=== PATIENT | female | born 1950 | race African-American/Black ===

== ENCOUNTER 2016-08-29 07:46 | Day surgery (SDC) | payer MEDICARE, MEDICAID ==
[2016-08-29 08:18] LABS: HEMOGLOBIN 12.2 g/dL (12.0-15.5); HGB HCT DIFFERENCE -1.4; MEAN CORPUSCULAR HEMOGLOBIN 26.4 pg (27.0-33.4); MEAN CORPUSCULAR HGB CONC 32.1 g/dL (32.0-36.0); MEAN CORPUSCULAR VOLUME 82 fl (80-97); RED BLOOD COUNT 4.62 10^6/uL (3.72-5.28); RED CELL DISTRIBUTION WIDTH 14.2 % (11.5-14.0); WHITE BLOOD COUNT 3.1 10^3/uL (4.0-10.5)
[2016-08-29 08:25] LABS: PROTHROMBIN TIME 12.8 SEC (11.4-15.4)
[2016-08-29 08:26] LABS: PARTIAL THROMBOPLASTIN TIME 30.6 SEC (23.5-35.8)
[2016-08-29 08:36] LABS: BLOOD UREA NITROGEN 14 mg/dL (7-20); CREATININE RESULT 0.64 mg/dL (0.52-1.25)
[2016-08-29] MEDS ORDERED: LIDOCAINE 1% INJ-PF (10 MG/ML) 30 ML SDV ONE (09:18)
[2016-08-29] MEDS ORDERED: ONDANSETRON HCL INJ/PF 4 MG/2 ML SDV ONE (10:16)
[2016-08-29] MEDS ORDERED: ONDANSETRON HCL INJ/PF 4 MG/2 ML SDV IV ONE (10:30)
[2016-08-29 12:17] VITALS: BP 138/89
== END 2016-08-29 12:30 | disposition home or self-care (01) ==
LOC: RAD 07:46
PROVIDERS: ATTEND Specialist
PROC: B01BYZZ Fluoroscopy of Spinal Cord using Other Contrast (ICD-10-PCS; principal; 2016-08-29)
DX: M51.36 Other intervertebral disc degeneration, lumbar region (principal); M54.16 Radiculopathy, lumbar region; E11.9 Type 2 diabetes mellitus without complications; Z79.01 Long term (current) use of anticoagulants
CPT/HCPCS: 36415; 84520; 82565; 85027; 85610; 85730; 72265; 72132; J3490; J2405

== ENCOUNTER 2016-11-10 23:33 | Emergency (ER) | payer MEDICARE, MEDICAID ==
--- NOTE | 2016-11-11 01:57 | ER Document Report ---
ED General - General Chief Complaint: Chest Pain Stated Complaint: CHEST PAIN, SHOULDER PAIN Notes: Patient is a 58-year-old female presents with complaint of pain in her right shoulder rates on the right arm and into her chest. Patient says it's worse with certain movements. She says if she leans over to lease picker something causes pain that shoots into her arm. Also she goes away back onto that right side also causes the same pain. No difficulty breathing. No fevers. No history of heart attack. No recent infections. No vomiting. No other complaints at this time. TRAVEL OUTSIDE OF THE [place] IN LAST 30 DAYS: No - Related Data Allergies/Adverse Reactions: No Known Allergies Allergy (Verified 04/07/15 08:27) Home Medications: Current Home Medications Dexlansoprazole [Dexilant 60 mg Capsule] 60 mg PO DAILY 11/11/16 [History] Hydrocodone Bit/Acetaminophen [Hydrocodon-Acetaminophn 10-325] 1 tab PO Q6HP PRN 11/11/16 [History] Icosapent Ethyl [Vascepa] 2 gm PO BID 11/11/16 [History] Insulin Degludec [Tresiba Flextouch U-100] 0 units SUBCUT ASDIR PRN 11/11/16 [ History] Metoprolol Succinate [Metoprolol Succinate] 50 mg PO DAILY 11/11/16 [History] [place]-3 Fatty Acids [[place]-3] 1,000 mg PO DAILY 11/11/16 [History] Promethazine HCl [Promethazine HCl] 25 mg PO Q6HP PRN 11/11/16 [History] Past Medical History - Social History Smoking Status: Never Smoker Chew tobacco use (# tins/day): Yes Frequency of alcohol use: None Drug Abuse: None Family History: Reviewed & Not Pertinent Patient has suicidal ideation: No Patient has homicidal ideation: No - Past Medical History Cardiac Medical History: Denies: Hx Coronary Artery Disease, Hx Heart Attack, Hx Hypertension Pulmonary Medical History: Denies: Hx Asthma, Hx Bronchitis, Hx COPD, Hx Pneumonia Neurological Medical History: Denies: Hx Cerebrovascular Accident, Hx Seizures Endocrine Medical History: Reports: Hx Diabetes Mellitus Type 1, Hx Diabetes Mellitus Type 2 Renal/ Medical History: Denies: Hx Peritoneal Dialysis GI Medical History: Reports: Hx Gastroesophageal Reflux Disease Musculoskeltal Medical History: Denies Hx Arthritis Past Surgical History: Reports: Hx Cholecystectomy, Hx Hysterectomy - Immunizations Immunizations up to date: No Hx Diphtheria, Pertussis, Tetanus Vaccination: Yes Review of Systems - Review of Systems Notes: My Normal Review Basic REVIEW OF SYSTEMS: CONSTITUTIONAL : Denies fever, chills, or sweats. Denies recent illness. EENT: Denies eye, ear, throat, or mouth pain or symptoms. Denies nasal or sinus congestion. CARDIOVASCULAR: Pain radiating from right shoulder into the chest. RESPIRATORY: Denies cough, cold, or chest congestion. Denies shortness of breath, difficulty breathing, or wheezing. GASTROINTESTINAL: Denies abdominal pain. Denies nausea, vomiting, or diarrhea. Denies constipation. Last BM: MUSCULOSKELETAL: Right shoulder pain SKIN: Denies rash or skin lesions. NEUROLOGICAL: Denies altered mental status or loss of consciousness. Denies headache. Denies weakness or paralysis or loss of use of either side. Denies problems with gait or speech. Denies sensory or motor loss. ALL OTHER SYSTEMS REVIEWED AND NEGATIVE. Physical Exam - Vital signs Vitals: Temp Pulse Resp BP Pulse Ox 97.5 F 51 L 18 145/80 H 99 11/10/16 23:37 11/10/16 23:37 11/10/16 23:37 11/10/16 23:37 11/10/16 23:37 - Notes Notes: General Appearance: Well nourished, alert, cooperative, no acute distress, mild obvious discomfort. Vitals: reviewed, See vital signs table. Head: no swelling or tenderness to the head Eyes: PERRL, EOMI, Conjuctiva clear Mouth: No decreasd moisture Neck: Supple, no neck tenderness, Lungs: No wheezing, No rales, No rhonci, No accessory muscle use, good air exchange bilaterally. Heart: Normal rate, Regular rythm, No murmur, no rub Abdomen: Normal BS, soft, No rigidity, No abdominal tenderness, No guarding, no rebound, no abdominal masses, no organomegaly Extremities: strength 5/5 in all extremities, good pulses in all extremities, whenever patient moves the arm of the right shoulder a certain way she will get pain that shoots up. When I have her lay back and also causes similar pain into her right shoulder and chest and arm. Patient's pain is also reproduced when she reaches out with her right arm. She has no swelling or redness to the shoulder. No warmth. No signs of infection. Remainder upper extremity exam is negative. Skin: warm, dry, appropriate color, no rash Neuro: speech clear, oriented x 3, normal affect, responds appropriately to questions. Course - Vital Signs Vital signs: Temp Pulse Resp BP Pulse Ox 97.5 F 51 L 18 145/80 H 99 11/10/16 23:37 11/10/16 23:37 11/10/16 23:37 11/10/16 23:37 11/10/16 23:37 - Laboratory Result Diagrams: 11/11/16 02:15 11/11/16 02:15 Laboratory results interpreted by me: 11/11/16 11/11/16 02:15 02:15 WBC 3.4 L MCH 26.4 L Monocytes % 14.1 H Glucose 163 H Total Protein 6.1 L - EKG Interpretation by Me Additional EKG results interpreted by me: 11/11/16 01:55 EKG is reviewed and interpreted by me. EKG shows normal sinus rhythm with rate of [address] segment elevation or depression. No ischemic T wave inversions. RI interval, QRS duration, QTc interval's are within normal range. Old EKG for comparison is from 11/11/2015. - Transfer of Care Notes: 11/11/16 04:22 Patient's pain is very musculoskeletal exam. It is easily reproducible with certain movements. It is localized to the shoulder and areas just around the shoulder. Her EKG and cardiac enzymes are negative. I think it's highly unlikely that this is cardiac in nature. I strongly encouraged her follow up with a primary care doctor on Sunday. I encourage her to return to ER if she gets any spreading of the pain, worsening of the pain, difficulty breathing, or she feels unwell. Patient agrees with plan and will be discharged home. Dictation of this chart was performed using voice recognition software; therefore, there may be some unintended grammatical errors. Discharge - Discharge Clinical Impression: Shoulder pain, acute Qualifiers: Laterality: right Qualified Code(s): M25.511 - Pain in right shoulder Condition: Good Disposition: HOME, SELF-CARE Additional Instructions: NORMAL EXAM AND WORKUP: At this time, your examination and workup show no significant abnormality. No significant abnormal physical findings were noted. All laboratory, EKG, and imaging (x-ray) studies that were ordered show no significant abnormality. Although your examination and all studies that were ordered showed no significant abnormal finding, there are no examinations and no studies that are 100% accurate. There is always the possibility that some abnormality could exist and not be detected with physical examination or within the limits and capabilities of laboratory and other studies. You should return or follow up as you were instructed on your visit today for further evaluation if your symptoms do not resolve. CHEST WALL PAIN: Your chest pain may be coming from the chest wall. This is often caused by straining the muscles or joints in the chest during physical activity, direct trauma, coughing, or vigorous vomiting. Persons with arthritis are especially prone to this type of pain, due to inflammation of the cartilage joints near the breast bone. Occasionally, no cause can be found. Rest from strenuous physical activity. This kind of chest pain is usually made worse by movement of the chest. Depending on the symptoms, we may prescribe medicine for pain, muscle relaxation, and antiinflammatory effects. If the pain is new, and seems to be due to muscle strain, cold packs can help. Otherwise, apply gentle warmth to the painful area for 15 minutes every hour or two. You should call contact the doctor immediately if things change. Further evaluation is needed if you develop a fever or cough, if the nature of the pain changes, or if you become short of breath. FOLLOW-UP CARE: If you have been referred to a physician for follow-up care, call the physician s office for an appointment as you were instructed or within the next two days. If you experience worsening or a significant change in your symptoms, notify the physician immediately or return to the Emergency Department at any time for re-evaluation. Please take the medication as prescribed. Please follow closely with her primary care doctor on Sunday for reevaluation. Please return to the ER if your pain worsens, the pain starts to occur on the left side of your chest, no difficulty breathing, fevers, or feel that anything is worsening. Prescriptions: Naproxen [Naprosyn 250 mg Tablet] 250 mg PO BID #20 tablet Referrals: ROMEO DIAZ MD [Primary Care Provider] - 11/13/16
[2016-11-11 02:32] LABS: ABSOLUTE EOSINOPHILS # (AUTO) 0.1 10^3/uL (0.0-0.6); ABSOLUTE LYMPHOCYTES (AUTO) 0.7 10^3/uL (0.5-4.7); ABSOLUTE MONOCYTES (AUTO) 0.5 10^3/uL (0.1-1.4); BASOPHILS % (AUTO) 0.6 % (0-2); EOSINOPHILS % (AUTO) 4.2 % (0-6); HEMATOCRIT 37.5 % (36.0-47.0); HEMOGLOBIN 12.2 g/dL (12.0-15.5); HGB HCT DIFFERENCE -0.9; MEAN CORPUSCULAR HEMOGLOBIN 26.4 pg (27.0-33.4); MEAN CORPUSCULAR HGB CONC 32.5 g/dL (32.0-36.0); MEAN CORPUSCULAR VOLUME 81 fl (80-97); MONOCYTES % (AUTO) 14.1 % (3-13); RED BLOOD COUNT 4.63 10^6/uL (3.72-5.28); SEGMENTED NEUTROPHILS % (AUTO) 60.1 % (42-78); WHITE BLOOD COUNT 3.4 10^3/uL (4.0-10.5)
[2016-11-11 02:49] LABS: ALANINE AMINOTRANSFERASE 25 U/L (9-52); ALBUMIN 3.7 g/dL (3.5-5.0); ALKALINE PHOSPHATASE 98 U/L (38-126); ANION GAP 12 (5-19); ASPARTATE AMINO TRANSFERASE 28 U/L (14-36); BILIRUBIN,DIRECT 0.2 mg/dL (0.0-0.4); BILIRUBIN,TOTAL 0.3 mg/dL (0.2-1.3); BLOOD UREA NITROGEN 15 mg/dL (7-20); CALCIUM 9.4 mg/dL (8.4-10.2); CARBON DIOXIDE 28 mmol/L (22-30); CHLORIDE 100 mmol/L (98-107); CREATINE KINASE 109 U/L (30-135); CREATININE RESULT 0.63 mg/dL (0.52-1.25); GLUCOSE 163 mg/dL (75-110); POTASSIUM 3.8 mmol/L (3.6-5.0); SODIUM 139.8 mmol/L (137-145); TOTAL PROTEIN 6.1 g/dL (6.3-8.2)
[2016-11-11 03:08] LABS: CREATINE KINASE MB 0.86 ng/mL (<4.55); TROPONIN I < 0.012 ng/mL
[2016-11-11] MEDS ORDERED: KETOROLAC TROMETHAMINE INJ/PF 30 MG/1 ML SDV IV ONE (04:19)
[2016-11-11 04:25] VITALS: BP 142/66
--- NOTE | 2016-11-11 10:17 | EKG REPORT ---
SEVERITY:- ABNORMAL ECG - SINUS RHYTHM LEFT AXIS DEVIATION LEFT VENTRICULAR HYPERTROPHY CONSIDER OLD ANTERIOR [place] : Confirmed by: Flip Mcneil MD 11-Nov-2016 10:16:47
== END 2016-11-11 04:35 | disposition home or self-care (01) ==
LOC: ER 23:33
DX: M25.511 Pain in right shoulder (principal); R07.9 Chest pain, unspecified; Z79.899 Other long term (current) drug therapy
CPT/HCPCS: 93005; 99284; 96374; 36415; 82553; 82550; 85025; 80053; 84484; 71010; 93010; J1885

== ENCOUNTER 2017-01-08 13:07 | Emergency (ER) | payer MEDICARE, MEDICAID ==
--- NOTE | 2017-01-08 14:04 | ER Document Report ---
ED General Pain - General Chief Complaint: Back Pain Stated Complaint: BACK PAIN Time Seen by Provider: 01/08/17 14:02 Mode of Arrival: Ambulatory Information source: Patient Notes: Patient is a 66 year old female who presents with low back pain that is described as "burning" sensation that radiates down her right leg that has been present for years. She states recently it has progressively gotten worse over the past 2 days. She denies any recent fall or injury. Pain is worse with ambulation. She states she is seen by pain management and takes oxycodone for her chronic pain, last dose was around 1000 this morning. 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 Denies fever , chills, nausea, vomiting, bowel/bladder incontinence, saddle paresthesias, weakness or numbness. Patient noted to be ambulatory to room without difficulty. TRAVEL OUTSIDE OF THE [place] IN LAST 30 DAYS: No - Related Data Allergies/Adverse Reactions: No Known Allergies Allergy (Verified 01/08/17 13:48) Past Medical History - General Information source: Patient - Social History Smoking Status: Unknown if Ever Smoked Family History: Reviewed & Not Pertinent Patient has suicidal ideation: No Patient has homicidal ideation: No - Past Medical History Cardiac Medical History: Denies: Hx Coronary Artery Disease, Hx Heart Attack, Hx Hypertension Pulmonary Medical History: Denies: Hx Asthma, Hx Bronchitis, Hx COPD, Hx Pneumonia Neurological Medical History: Denies: Hx Cerebrovascular Accident, Hx Seizures Endocrine Medical History: Reports: Hx Diabetes Mellitus Type 1, Hx Diabetes Mellitus Type 2 Renal/ Medical History: Denies: Hx Peritoneal Dialysis GI Medical History: Reports: Hx Gastroesophageal Reflux Disease Musculoskeltal Medical History: Denies Hx Arthritis Past Surgical History: Reports: Hx Cholecystectomy, Hx Hysterectomy, Hx Vascular Surgery - IVC filter - Immunizations Immunizations up to date: No Hx Diphtheria, Pertussis, Tetanus Vaccination: Yes Review of Systems - Review of Systems Constitutional: See HPI EENT: No symptoms reported Cardiovascular: No symptoms reported Respiratory: No symptoms reported Gastrointestinal: No symptoms reported Genitourinary: No symptoms reported Female Genitourinary: No symptoms reported Musculoskeletal: See HPI Skin: No symptoms reported Hematologic/Lymphatic: No symptoms reported Neurological/Psychological: See HPI Physical Exam - Vital signs Vitals: Temp Pulse Resp BP Pulse Ox 97.6 F 96 20 154/87 H 97 01/08/17 13:51 01/08/17 13:51 01/08/17 13:51 01/08/17 13:51 01/08/17 13:51 Interpretation: Hypertensive - Notes Notes: PHYSICAL EXAM: CONSTITUTIONAL: Alert and oriented, well-appearing and in no acute distress. HENT: Normocephalic, atraumatic. Trachea midline. Uvula midline. Moist mucous membranes. EYES: Pupils equal round and reactive to light, EOM intact. Sclera anicteric, conjunctiva are normal. No entrapment. NECK: supple without lymphadenopathy. No midline tenderness or paraspinous muscle spasms. No step-offs or deformities. ROM intact. HEART: Regular rate and rhythm without murmurs. LUNGS: CTAB and equal. No wheezes, rales or rhonchi. BACK: tender to palpation in midline of lumbar spine, no step-offs or deformities, no warmth or erythema to area, no paraspinous spasm, 5+/5 strengths , DTRs 2+, SLR+ on R side. EXTREMITIES: Normal range of motion, no pitting edema. No cyanosis. Cap Refill < 3 seconds. NEURO: Cranial nerves grossly intact. Normal sensory/motor exams. Sensation to light touch intact. Ambulatory with steady gait. PSYCH: Normal mood, normal affect. SKIN: Warm and dry. Normal turgor. No rashes or lesions noted. Course - Re-evaluation Re-evalutation: 01/08/17 14:22 Patient seen and examined. Patient ambulatory to exam room with steady gait. Neurovascular intact. No recent or injury to back. Denies bowel/bladder incontinence, weakness, saddle paresthesias. Will xray but suspect this is due to chronic pain. Patient currently under pain management contract and is taking percocet at home. 01/08/17 14:52 Reviewed imaging of L-Spine - negative for acute changes. Compared with previous spine CT and xray imaging. The IVC filter is unchanged from previous imaging studies. at this time, this appears to be an exacerbation of patient's chronic pain. I have low suspicion for central cord compression, cauda equine syndrome, epidural abscess. Discussed with patient that because she is under pain management contract and that this is chronic pain, the emergency room does not treat chronic pain and she should continue to follow-up with her primary care doctor/pain management. Advised to use tylenol/motrin as needed for her pain. At this time, will discharge with return precautions and follow-up recommendations. Verbal discharge instructions given at the bedside and opportunity for questions given. Medication warnings reviewed. Patient is in agreement with this plan and has verbalized understanding of return precautions and the need for primary care follow-up in the next 24-72 hours. - Vital Signs Vital signs: Temp Pulse Resp BP Pulse Ox 97.6 F 96 20 154/87 H 97 01/08/17 13:51 01/08/17 13:51 01/08/17 13:51 01/08/17 13:51 01/08/17 13:51 - Diagnostic Test Radiology reviewed: Image reviewed, Reports reviewed Discharge - Discharge Clinical Impression: Chronic low back pain Qualifiers: Back pain laterality: bilateral Sciatica presence: without sciatica Qualified Code(s): M54.5 - Low back pain; G89.29 - Other chronic pain Condition: Stable Disposition: HOME, SELF-CARE Additional Instructions: The Emergency Department is not the appropriate place for you to be seeking care for your chronic pain issues. Please see your family physician for these chronic complaints. I will be unable to provide you with any narcotics here today. Rest and drink plenty of fluids. Use Tylenol or Motrin for your pain in addition to the muscle relaxants and ice and warm packs and your normal prescription pain medications. Follow-up with your family physician for further evaluation and treatment. Return to the Emergency Department for severe pain, severe swelling, loss of bowel or bladder control, fever greater than 100.5 or other concerns. LOW BACK PAIN: Three out of every four people will have an episode of disabling back pain during their lifetime. Most commonly the pain is due to straining of the muscles and ligaments in the low back. Usual treatment includes: (1) Rest on a firm surface. Avoid lying on your stomach. (2) Ice pack the painful area. After a few days, gentle heat may be used intermittently to relax the area, or ice packs can be continued. (3) Medication may be needed -- muscle relaxers and antiinflammatory medicines are commonly used. (4) As the back improves, exercises are prescribed to strengthen the back and abdominal muscles. Your doctor will advise you on the proper care for your back at each stage in your recovery. You may be better in a few days -- or healing may take several weeks. If new symptoms of a "herniated disc" (radiation of pain, numbness, or tingling down the back of the leg or weakness in the leg) occur, you should be re-examined. Further testing may be necessary. ICE PACKS: Apply ice packs frequently against the painful area. Many different schedules are recommended, such as "20 minutes on, 20 minutes off" or "one hour ice, two hours rest." If you need to work, you may need to go longer between ice treatments. You should plan to have the area ice packed AT LEAST one fourth of the time. The ice should be applied over the wrap, tape, or splint, or over a layer of cloth -- not directly against the skin. Some ice bags have a built-in cloth and can be put directly on the skin. WARM PACKS: After approximately two days, apply gentle heat (such as a heating pad or hot water bottle) for about 20 to 30 minutes about every two hours -- at least four times daily. Warmth and elevation will help you make a more rapid recovery , and will ease the pain considerably. Do not use HOT heat, and never apply heat for longer than 30 minutes. The continuous heat can invisibly damage skin and muscles -- even when no burn is seen on the surface. Damaged muscles can make you MORE sore. FOLLOW-UP CARE: If you have been referred to a physician for follow-up care, call the physician s office for an appointment as you were instructed or within the next two days. If you experience worsening or a significant change in your symptoms, notify the physician immediately or return to the Emergency Department at any time for re-evaluation. Referrals: ROMEO DIAZ MD [Primary Care Provider] - Follow up in 3-5 days
--- NOTE | 2017-01-08 14:45 | RADIOLOGY REPORT (SQ) ---
EXAM DESCRIPTION: L SPINE WHOLE COMPLETED DATE/TIME: 01/08/2017 2:33 pm REASON FOR STUDY: low back pain COMPARISON: 12/15/2015 NUMBER OF VIEWS: Five views including obliques. TECHNIQUE: AP, lateral, oblique, and sacral radiographic images acquired of the lumbar spine. LIMITATIONS: None. FINDINGS: MINERALIZATION: Osteopenia. SEGMENTATION: Normal. No transitional anatomy. ALIGNMENT: Normal. VERTEBRAE: Maintained height. No fracture or worrisome bone lesion. DISCS: There is mild disc space narrowing at L4-5. Small marginal osteophytes are seen at L2 and L3. POSTERIOR ELEMENTS: Pedicles and facets are intact. No pars defect or posterior arch defects. HARDWARE: None in the spine. PARASPINAL SOFT TISSUES: Normal. PELVIS: Intact as visualized. No fractures or worrisome bone lesions. SI joints intact. OTHER: No other significant finding. IMPRESSION: Mild degenerative disc disease and spondylosis. TECHNICAL DOCUMENTATION: JOB ID: [id number]- All Rights Reserved
[2017-01-08 15:26] VITALS: BP 139/82
== END 2017-01-08 15:26 | disposition home or self-care (01) ==
LOC: ER 13:07
DX: M54.5 Low back pain (principal); G89.29 Other chronic pain; Z79.891 Long term (current) use of opiate analgesic; Z95.828 Presence of other vascular implants and grafts; E11.9 Type 2 diabetes mellitus without complications
CPT/HCPCS: 72110; 99283

== ENCOUNTER → 2017-03-29 | Outpatient (CLI) | payer MEDICARE, MEDICAID ==
--- NOTE | 2017-03-29 12:38 | RADIOLOGY REPORT (SQ) ---
EXAM DESCRIPTION: VENOUS BILATERAL LOWER COMPLETED DATE/TIME: 03/29/2017 11:32 am REASON FOR STUDY: MUSCLE SPASM OF CALF M62.831 M62.831 MUSCLE SPASM OF CALF COMPARISON: None. TECHNIQUE: Dynamic and static le scale and color images acquired of both lower extremity venous sy stems. Selected spectral images acquired with additional compression and augmentation maneuvers. Imag es stored on PACS. LIMITATIONS: None. FINDINGS: RIGHT LEG COMMON FEMORAL AND FEMORAL: Normal phasicity, compression and augmentation. No visualized echogenic m aterial on le scale. No defects on color images. POPLITEAL: Normal compression and augmentation. No visualized echogenic material on le scale. No de fects on color images. CALF VESSELS: Normal compression and augmentation. No visualized echogenic material on le scale. No defects on color image. GSV AND SSV: Normal compression. No visualized echogenic material on le scale. No defects on color images. ANY DEEP VENOUS INSUFFICIENCY: Not evaluated. ANY EVIDENCE OF POPLITEAL CYST: No. OTHER: No other significant finding. LEFT LEG COMMON FEMORAL AND FEMORAL: Normal phasicity, compression and augmentation. No visualized echogenic m aterial on le scale. No defects on color images. POPLITEAL: Normal compression and augmentation. No visualized echogenic material on le scale. No de fects on color images. CALF VESSELS: Normal compression and augmentation. No visualized echogenic material on le scale. No defects on color images. GSV AND SSV: Normal compression. No visualized echogenic material on le scale. No defects on color images. ANY DEEP VENOUS INSUFFICIENCY: Not evaluated. ANY EVIDENCE POPLITEAL CYST: No. OTHER: No other significant finding. IMPRESSION: NO EVIDENCE DVT OR SVT IN EITHER LEG. TECHNICAL DOCUMENTATION: JOB ID: [id number] [employer]- All Rights Reserved
== END ==
LOC: SP 10:56
PROVIDERS: ATTEND Specialist
DX: M62.831 Muscle spasm of calf (principal)
CPT/HCPCS: 93970

== ENCOUNTER 2017-04-12 07:30 | Day surgery (SDC) | payer MEDICARE, MEDICAID ==
[2017-04-12 08:14] LABS: PROTHROMBIN TIME 12.8 SEC (11.4-15.4)
[2017-04-12 08:15] LABS: PARTIAL THROMBOPLASTIN TIME 30.5 SEC (23.5-35.8)
[2017-04-12] MEDS ORDERED: OXYCODONE-ACETAMINOPHEN 5-325 MG TABLET ONE (11:54)
[2017-04-12 15:18] VITALS: BP 156/102
--- NOTE | 2017-04-12 15:36 | RADIOLOGY REPORT (SQ) ---
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 Postmyelogram lumbar spine CT with sagittal and coronal reconstructions LIMITATIONS: None. PROCEDURE: After written consent and assessment were obtained, the patient was brought into the fluo roscopy room and placed prone on the table. The patient's lower back was prepped in a sterile fashio n and an entry site was selected under live fluoroscopic guidance. The entry site was anesthetized wi th 3.5 mL of 1% lidocaine. The spinal needle was advanced through the skin and into the thecal sac at the right paracentral L2-3 level. Contrast was injected into the thecal sac. Following the procedu re the needle was removed and a sterile bandage was placed of the site. CONTRAST: 9 mL Isovue M 200. IMAGES ACQUIRED: Fluoroscopic imaging including prone semi-erect and upright frontal and oblique view s, upright lateral flexion and extension views of the lumbar spine. Postmyelogram CT lumbar spine with sagittal and coronal reconstructions TECHNIQUE: After performing lumbar myelogram, axial images were acquired through the lumbar spine wi thout intravenous contrast. Images reviewed with lung, soft tissue and bone windows. Reconstructed coronal and sagittal MPR images reviewed. All images stored on PACS. All CT scanners at this facility use dose modulation, iterative reconstruction, and/or weight based d osing when appropriate to reduce radiation dose to as low as reasonably achievable (ALARA). [facility]: Dose Right [facility]: CareDose [facility]: Dose Right [facility]: Teradose 4D [facility]: [facility] FINDINGS: Myelogram digital fluoroscopic images demonstrate symmetric filling of the L3, L4, L5, and S1 nerve roots. No clumping of lumbar nerve roots worrisome for arachnoiditis. The conus is at the L1-2 level. At L4-5, on the fluoroscopic images there is a small ventral epidural defects and dorsal epidural def ect causing borderline central canal narrowing on the upright view. No instability on flexion/ exten faith. There is bilateral facet arthropathy at L4-5 and L5-S1. Fluoroscopic images demonstrate a 5 to mm calcification at the level of the left L4 transverse proces s which represents a phlebolith in a retroperitoneal vein on the postmyelogram CT. SEGMENTATION: Normal. No transitional anatomy. ALIGNMENT: Normal. VERTEBRAL BODIES: No fractures. No dislocation. No acute findings. Normal bone density for age. HARDWARE: None in the spine. PEDICLES, TRANSVERSE PROCESSES: No fractures. No dislocation. No acute findings. FACETS, POSTERIOR ELEMENTS: No fractures. No dislocation. VISUALIZED RIBS: No fractures. SOFT TISSUES: No significant or acute finding in adjacent soft tissues. DISCS: T12-L1: Unremarkable L1-L2: Unremarkable L2-L3: Unremarkable L3-L4: Unremarkable L4-L5: Borderline central canal narrowing at L4-5, from broad diffuse posterior disc bulge, mild to m oderate facet and ligament hypertrophy, and dorsal epidural fat. This is best shown on axial series 4, images 59-62. This is also well demonstrated on sagittal reconstruction image 21. There is very mild bilateral foraminal narrowing at L4-5 without exiting L4 nerve root impingement. L5-S1: No significant protrusions. No significant stenosis. Minimal posterior disc bulging, mild bi lateral facet and ligament hypertrophy. Mild bilateral foraminal narrowing without exiting L5 nerve root impingement. OTHER: Mild bilateral SI joint vacuum phenomenon. Stable appearance of the inferior vena cava filter , with a broken struts protruding into the L3 vertebral body. Stable right-sided mild hydronephrosis compared to CT exam 01/25/2015. Clips post cholecystectomy. Left midpole 3 cm renal cortical cyst. IMPRESSION: No high-grade central or foraminal encroachment. Normal filling of the lumbar nerve karmen t sleeves. No CT evidence of arachnoiditis Borderline central canal narrowing at L4-5 related to broad diffuse posterior disc bulging and mild b ilateral facet and ligament hypertrophy. COMMENT: Patient medication list reviewed: Yes- Quality ID# [id number]:Eligible professional attests to doc umenting in the medical record they obtained, updated, or reviewed the patient's current medications. TECHNICAL DOCUMENTATION: JOB ID: [id number] Quality ID # [id number]: Final reports with documentation of one or more dose reduction techniques (e.g., Au tomated exposure control, adjustment of the mA and/or kV according to patient size, use of iterative reconstruction technique) 2010 [employer]- All Rights Reserved
== END 2017-04-12 13:10 | disposition home or self-care (01) ==
LOC: RAD 07:30
PROVIDERS: ATTEND Specialist
PROC: B01BYZZ Fluoroscopy of Spinal Cord using Other Contrast (ICD-10-PCS; principal; 2017-04-12)
DX: M54.16 Radiculopathy, lumbar region (principal); Z79.899 Other long term (current) drug therapy; Z79.01 Long term (current) use of anticoagulants; I10 Essential (primary) hypertension; E11.9 Type 2 diabetes mellitus without complications
CPT/HCPCS: 36415; 82947; 85610; 85730; 72265; 72132; A9270

== ENCOUNTER → 2017-05-04 | Outpatient (CLI) | payer MEDICARE, MEDICAID ==
--- NOTE | 2017-05-04 13:03 | RADIOLOGY REPORT (SQ) ---
EXAM DESCRIPTION: NM BONE SCAN LIMITED COMPLETED DATE/TIME: 05/04/2017 12:27 pm REASON FOR STUDY: LOW BACK PAIN (M54.5), MUSCLE WEAKNESS (M62.81) M62.81 MUSCLE WEAKNESS (GENERALIZ ED) M54.5 LOW BACK PAIN COMPARISON: 07/24/2016 RADIONUCLIDE AND DOSE: 21.5 millicuries Tc99m MDP. The route of agent administration: Intravenous. ADDITIONAL DRUGS AND DOSES: None. TECHNIQUE: Routine delayed images at 3 hour post radionuclide injection acquired of the bony skeleto n including anterior and posterior abdomen projections and additional focused images as needed. LIMITATIONS: None. FINDINGS: BONES: Normal visualization without areas of photopenia or increased bony uptake of radiop harmaceutical. KIDNEYS: Unchanged abnormal increased right renal activity. OTHER: No other significant finding. IMPRESSION: No evidence of fracture or metastatic disease. Chronic right UPJ obstruction. COMMENT: Quality measure 147: Current bone scan is compared with any available plain radiographs, p rior bone scans, and CT/MRI. TECHNICAL DOCUMENTATION: JOB ID: [id number]- All Rights Reserved
== END ==
LOC: RAD 09:15
PROVIDERS: ATTEND Specialist
DX: M54.5 Low back pain (principal); M62.81 Muscle weakness (generalized)
CPT/HCPCS: 78305; A9561; Q9969

== ENCOUNTER → 2018-01-01 | Outpatient (CLI) | payer MEDICARE, MEDICAID ==
[~2018-01-01] MED LIST: FUROSEMIDE INJ/PF 40 MG/4 ML SDV ONE
--- NOTE | 2018-01-01 10:33 | RADIOLOGY REPORT (SQ) ---
EXAM DESCRIPTION: NM RENAL WITH LASIX COMPLETED DATE/TIME: 01/01/2018 9:10 am REASON FOR STUDY: HYDRONEPHROSIS RENAL CYST N13.1 HYDRONEPHROSIS W URETERAL STRICTURE, NEC N28.1 C YST OF KIDNEY, ACQUIRED COMPARISON: Lumbar myelogram 04/12/2017, 08/29/2016 CT abdomen pelvis 01/25/2015 RADIONUCLIDE AND DOSE: 5.35 millicuries Tc-99m MAG 3 The route of agent administration: Intravenous ADDITIONAL DRUGS AND DOSES: Lasix 20 mg IV. TECHNIQUE: Following administration of the radionuclide, flow images of the kidneys were acquired fo llowed by sequential imaging for 30 minutes. Intravenous Lasix was given at the midpoint of the study . Time activity curves were generated. LIMITATIONS: None. FINDINGS: ACTIVITY LEFT KIDNEY: 50 %. ACTIVITY RIGHT KIDNEY: 50 %. There is prompt uptake of activity in the kidneys bilaterally simultaneous with passage of the aortic bolus. There is normal excretion with progression of activity from the left renal cortex into the collecting system and subsequently into the ureter. Time activity curves demonstrate normal left kidney excret ory pattern with no abnormal retention. No obstructive changes. Left kidney T half max post Lasix 1 0 minutes. On the right side, a ureteropelvic junction obstruction is present. There is normal perfusion to the right kidney. There is pooling of activity in a dilated right renal pelvis. This renal pelvis accu mulation causes delay in peak activity over the right kidney. Post Lasix, there is washout of activi ty from the right kidney, with the right T half max post Lasix [address] 01/25/2015 was reviewed. At that time, extensive scar tissue was seen around the pancreatic h ead, 3rd portion of duodenum, inferior vena cava, and right retroperitoneum near the proximal right u reter. This is likely the cause of the right UPJ obstruction. IMPRESSION: Right UPJ obstruction. Symmetric renal perfusion Normal left kidney time activity curves TECHNICAL DOCUMENTATION: JOB ID: [id number] [employer]- All Rights Reserved Reading location - IP/workstation name: [facility] [email or web address]
== END ==
LOC: RAD 07:56
PROVIDERS: ATTEND Urology
DX: N13.1 Hydronephrosis with ureteral stricture, not elsewhere classified (principal); N28.1 Cyst of kidney, acquired
CPT/HCPCS: 78708; A9562; J1940

== ENCOUNTER 2018-02-01 02:24 | Emergency (ER) | payer MEDICARE, MEDICAID ==
[2018-02-01 03:16] LABS: ABSOLUTE EOSINOPHILS # (AUTO) 0.1 10^3/uL (0.0-0.6); ABSOLUTE LYMPHOCYTES (AUTO) 0.9 10^3/uL (0.5-4.7); ABSOLUTE MONOCYTES (AUTO) 0.5 10^3/uL (0.1-1.4); ABSOLUTE NEUT (AUTO) 2.4 10^3/uL (1.7-8.2); BASOPHILS % (AUTO) 0.3 % (0-2); HEMATOCRIT 36.8 % (36.0-47.0); HEMOGLOBIN 11.8 g/dL (12.0-15.5); LYMPHOCYTES % (AUTO) 22.8 % (13-45); MEAN CORPUSCULAR HEMOGLOBIN 27.1 pg (27.0-33.4); MEAN CORPUSCULAR HGB CONC 32.2 g/dL (32.0-36.0); MEAN CORPUSCULAR VOLUME 84 fl (80-97); MONOCYTES % (AUTO) 12.8 % (3-13); PLATELET COUNT 210 10^3/uL (150-450); RED BLOOD COUNT 4.38 10^6/uL (3.72-5.28); RED CELL DISTRIBUTION WIDTH 13.9 % (11.5-14.0); SEGMENTED NEUTROPHILS % (AUTO) 62.1 % (42-78); TOTAL CELLS COUNTED % (AUTO) 100 %; WHITE BLOOD COUNT 3.9 10^3/uL (4.0-10.5)
[2018-02-01] MEDS ORDERED: ONDANSETRON HCL INJ/PF 4 MG/2 ML SDV IV ONE (03:21)
[2018-02-01] MEDS ORDERED: NORMAL SALINE 1000 ML 1,000 ML IV ONE ×2 (03:21→07:43)
[2018-02-01 03:31] LABS: ALANINE AMINOTRANSFERASE 25 U/L (9-52); ALBUMIN 4.2 g/dL (3.5-5.0); ALKALINE PHOSPHATASE 71 U/L (38-126); ANION GAP 14 (5-19); ASPARTATE AMINO TRANSFERASE 19 U/L (14-36); BILIRUBIN,DIRECT 0.2 mg/dL (0.0-0.4); BILIRUBIN,TOTAL 0.2 mg/dL (0.2-1.3); BLOOD UREA NITROGEN 28 mg/dL (7-20); CALCIUM 9.9 mg/dL (8.4-10.2); CARBON DIOXIDE 23 mmol/L (22-30); CHLORIDE 101 mmol/L (98-107); GLUCOSE 383 mg/dL (75-110); POTASSIUM 5.6 mmol/L (3.6-5.0); SODIUM 138.3 mmol/L (137-145); TOTAL PROTEIN 6.8 g/dL (6.3-8.2)
[2018-02-01] MEDS ORDERED: METOCLOPRAMIDE HCL INJ/PF 10 MG/2 ML SDV IV ONE (03:37)
--- NOTE | 2018-02-01 04:34 | ER Document Report ---
ED General - General Mode of Arrival: Ambulatory Information source: Patient TRAVEL OUTSIDE OF THE [place] IN LAST 30 DAYS: No <KAELA MALIN - Last Filed: 02/01/18 06:55> <MAXWELL MATOS - Last Filed: 02/01/18 09:24> - General Chief Complaint: Abdominal Pain Stated Complaint: ABDOMINAL PAIN Time Seen by Provider: 02/01/18 02:58 Notes: 67-year-old female patient presenting with chief complaint of abdominal pain 2 days. Patient reports that he she has associated nausea and has vomited 1. Patient denies any diarrhea, fever or urinary symptoms. Patient reports pain to her right lower quadrant as well as her upper abdomen/epigastric area. Patient reports past medical history of renal stones, pancreatitis, insulin- dependent diabetes, hypertension and hyperlipidemia. Patient reports past surgical history of placement of an IVC filter and cholecystectomy. (KAELA MALIN) - Related Data Allergies/Adverse Reactions: No Known Allergies Allergy (Verified 01/08/17 13:48) Past Medical History - General Information source: Patient - Social History Smoking Status: Unknown if Ever Smoked Frequency of alcohol use: None Drug Abuse: None Lives with: Alone Family History: Reviewed & Not Pertinent Patient has suicidal ideation: No Patient has homicidal ideation: No - Past Medical History Cardiac Medical History: Reports: Hx Hypertension Denies: Hx Coronary Artery Disease, Hx Heart Attack Pulmonary Medical History: Denies: Hx Asthma, Hx Bronchitis, Hx COPD, Hx Pneumonia Neurological Medical History: Denies: Hx Cerebrovascular Accident, Hx Seizures Endocrine Medical History: Reports: Hx Diabetes Mellitus Type 1, Hx Diabetes Mellitus Type 2 Renal/ Medical History: Denies: Hx Peritoneal Dialysis GI Medical History: Reports: Hx Gastroesophageal Reflux Disease Musculoskeltal Medical History: Denies Hx Arthritis Past Surgical History: Reports: Hx Cholecystectomy, Hx Hysterectomy, Hx Vascular Surgery - IVC filter - Immunizations Immunizations up to date: No Hx Diphtheria, Pertussis, Tetanus Vaccination: Yes Hx Pneumococcal Vaccination: 08/29/15 <KAELA MALIN - Last Filed: 02/01/18 06:55> Review of Systems - Review of Systems Constitutional: No symptoms reported EENT: No symptoms reported Cardiovascular: No symptoms reported Respiratory: No symptoms reported Gastrointestinal: See HPI Genitourinary: No symptoms reported Female Genitourinary: No symptoms reported Musculoskeletal: No symptoms reported Skin: No symptoms reported Hematologic/Lymphatic: No symptoms reported Neurological/Psychological: No symptoms reported <KAELA MALIN - Last Filed: 02/01/18 06:55> Physical Exam <KAELA MALIN - Last Filed: 02/01/18 06:55> <MAXWELL MATOS - Last Filed: 02/01/18 09:24> - Vital signs Vitals: Temp Pulse Resp BP Pulse Ox 98.1 F 98 18 125/80 95 02/01/18 02:31 02/01/18 02:31 02/01/18 02:31 02/01/18 02:31 02/01/18 02:31 - Notes Notes: PHYSICAL EXAMINATION: GENERAL: Well-appearing, well-nourished and in no acute distress. HEAD: Atraumatic, normocephalic. EYES: Pupils equal round and reactive to light, extraocular movements intact, conjunctiva are normal. ENT: Nares patent, oropharynx clear without exudates. Moist mucous membranes. NECK: Normal range of motion, supple without lymphadenopathy LUNGS: Breath sounds clear to auscultation bilaterally and equal. No wheezes rales or rhonchi. HEART: Regular rate and rhythm without murmurs ABDOMEN: Soft, nondistended abdomen. TTP to RLQ and upper abdomen/epigastric area. No guarding, no rebound. No masses appreciated. Female : deferred Musculoskeletal: Normal range of motion, no pitting or edema. No cyanosis. NEUROLOGICAL: Cranial nerves grossly intact. Normal speech, normal gait. Normal sensory, motor exams PSYCH: Normal mood, normal affect. SKIN: Warm, Dry, normal turgor, no rashes or lesions noted. (KAELA MALIN) Course - Laboratory Result Diagrams: 02/01/18 03:05 02/01/18 03:05 <KAELA MALIN - Last Filed: 02/01/18 06:55> - Laboratory Result Diagrams: 02/01/18 03:05 02/01/18 03:05 <MAXWELL MATOS - Last Filed: 02/01/18 09:24> - Re-evaluation Re-evalutation: 67-year-old female patient presenting with abdominal pain for last 2 days with associated nausea and vomiting. Patient's initial workup to include CBC, comprehensive, lipase and urinalysis are all otherwise normal other than elevated glucose on her comprehensive as well as in her urine. Patient is a known diabetic. Patient has significant tenderness to palpation to the right lower quadrant as well as the upper abdomen. Discussed options with patient to include CAT scan. Patient states that she is unsure if she still has her appendix. Will order CT abdomen pelvis with IV and oral contrast to evaluate for appendicitis. Patient will be medicated with IV pain medication as well as IV antiemetics. On reevaluation patient does report some improvement of her pain after IV pain medications. Patient has not vomited since she was given antiemetics. Patient is sitting up in bed drinking oral contrast however patient does state that she still has some abdominal tenderness. On examination patient has tenderness to palpation to the right lower quadrant specifically with generalized tenderness of the upper abdomen. Patient scheduled to go for CT at 0730. Patient will be signed out to [place] Romero oncoming shift. (KAELA MALIN) 02/01/18 09:[address] results with the patient. I did speak with Dr. Delcid who states that the soft tissue structures are mentioned by Dr. Altamirano was there and the CT 2013 it is old scarring in that is the same. There is nothing new. Patient will be treated for low back pain with Tylenol and muscle relaxers and she can follow-up with Dr. Correa. (MAXWELL MATOS) - Vital Signs Vital signs: Temp Pulse Resp BP Pulse Ox 97.8 F 95 16 124/77 98 02/01/18 08:11 02/01/18 08:11 02/01/18 08:11 02/01/18 08:11 02/01/18 08:11 02/01/18 09:01 Spoke with Elly Delcid who states that the soft tissue structure at the root of the mesentery with adjacent fibrotic change and engorgement of the mesenteric vessels is the same as what was there in 2014 this is old scarring. The appendix is normal. The ventral hernias were palpated on physical exam and that is not where she is tender. When I examined her she had tender over the right low back sacral area and in the anterior right groin. There is diverticulosis without evidence of diverticulitis. I will be sending the patient home. (MAXWELL MATOS) - Laboratory Laboratory results interpreted by me: 02/01/18 02/01/18 02/01/18 03:05 03:05 04:25 WBC 3.9 L Hgb 11.8 L Potassium 5.6 H BUN 28 H Est GFR (Non-Af Amer) 59 L Glucose 383 H Urine Glucose (UA) >=500 H Discharge <KAELA MALIN - Last Filed: 02/01/18 06:55> <MAXWELL MATOS - Last Filed: 02/01/18 09:24> - Discharge Clinical Impression: right lower quadrant pelvic pain Right low back pain Qualifiers: Chronicity: chronic Sciatica presence: without sciatica Qualified Code(s): M54.5 - Low back pain; G89.29 - Other chronic pain; G89.29 - Other chronic pain Condition: Good Disposition: HOME, SELF-CARE Instructions: Abdominal Pain ([facility]), Low Back Pain ([facility]), Pelvic Pain ([facility]), Acetaminophen, Warm Packs ([facility]), Muscle Relaxers ([facility]) Additional Instructions: see your doctor for follow up to er if symptoms worsen tylenol for pain warm compress muscle relaxers may help the back pain Prescriptions: Cyclobenzaprine HCl [Flexeril 10 Mg Tablet] 10 mg PO TIDP PRN #20 tablet PRN Reason: Referrals: ROMEO DIAZ MD [Primary Care Provider] - 02/04/18
[2018-02-01] MEDS ORDERED: MORPHINE SULFATE 10 MG/ML INJ IV ONE ×2 (04:44→07:43)
[2018-02-01 04:49] LABS: APPEARANCE,URINE CLEAR; BILIRUBIN,URINE NEGATIVE (NEGATIVE); COLOR,URINE STRAW; GLUCOSE, URINE >=500 mg/dL (NEGATIVE); KETONES,URINE NEGATIVE (NEGATIVE); LEUKOCYTE ESTERASE,URINE NEGATIVE (NEGATIVE); NITRITE,URINE NEGATIVE (NEGATIVE); PROTEIN,URINE NEGATIVE (NEGATIVE); URINE SPECIFIC GRAVITY 1.002; UROBILINOGEN,URINE NEGATIVE mg/dL (<2.0)
--- NOTE | 2018-02-01 07:58 | RADIOLOGY REPORT (SQ) ---
EXAM DESCRIPTION: CT ABDOMEN PELVIS WITH IV CONTRAST COMPLETED DATE/TME: 02/01/2018 00:00 CLINICAL HISTORY: RLQ pain COMPARISON: None Available. TECHNIQUE: CT of the abdomen and pelvis performed following IV administration of 80 mL of Isovue-370. DLP: 1459.66 mGycm FINDINGS: Lung Bases: Bibasilar discoid atelectasis. Bones: No destructive bone lesions identified. Degenerative change of the lumbar spine. Abdomen: Liver: The liver has normal size and density. No intrahepatic mass or biliary dilatation. Gallbladder: Prior cholecystectomy. Spleen, Pancreas, and Adrenal Glands: Fatty infiltration of the pancreas. The spleen and adrenal glands are unremarkable. Kidneys: The kidneys have normal size and contour without evidence of solid mass or hydronephrosis. Right peripelvic cysts and extrarenal pelvis. Contrast is excreted bilaterally. Bilateral Bosniak class I renal cysts. Vasculature: Aortoiliac atherosclerosis. IVC filter in place. There is protrusion of the struts to the IVC wall. The portal vein is patent however it is diminutive in caliber as it enters the norbert hepatis. Stomach: The stomach and duodenum have normal course. Other: No free intraperitoneal air. There multiple ventral hernias. The ventral hernia the level of the umbilicus containing nondilated loops of bowel. The most severe in superior ventral hernia contains a mesenteric vessel. No free fluid. At the mesenteric root there is a soft tissue structure with stellate fibrotic changes around the mesenteric vessels contributing to the narrowing of the portal vein is previously described. With mild hazy mesentery. Mild prominence of the mesenteric vessels Pelvis: Bladder: Urinary bladder is unremarkable. Bowel: No dilated loops of large or small bowel. Scattered diverticula of the colon. Appendix: Normal appendix. Pelvis: Prior hysterectomy. IMPRESSION: 1. Ill-defined soft tissue structure at the root of the mesentery with adjacent fibrotic change and engorgement of the mesenteric vessels as well as narrowing of the portal vein. These findings could be seen with sclerosing mesenteritis. Alternatively. Carcinoid tumor or desmoid tumor of the mesentery could produce similar appearance. Correlation with urine 5-HIAA may help to exclude carcinoid tumor. Short interval CT follow-up in 3-6 months recommended. 2. Multiple ventral hernias. The periumbilical ventral hernia contains a loop of nondilated bowel. No bowel obstruction identified. 3. Diverticulosis without evidence of acute diverticulitis. This exam was performed according to our departmental dose-optimization program, which includes automated exposure control, adjustment of the mA and/or kV according to patient size and/or use of iterative reconstruction technique.
[2018-02-01] MEDS ORDERED: ACETAMINOPHEN 325 MG TABLET PO ONE (09:21)
[2018-02-01 10:12] VITALS: BP 124/83
== END 2018-02-01 10:12 | disposition home or self-care (01) ==
LOC: ER 02:24
DX: R10.31 Right lower quadrant pain (principal); R10.2 Pelvic and perineal pain; M54.5 Low back pain; G89.29 Other chronic pain; R11.2 Nausea with vomiting, unspecified; R10.13 Epigastric pain; E11.9 Type 2 diabetes mellitus without complications; Z79.4 Long term (current) use of insulin; I10 Essential (primary) hypertension; E78.5 Hyperlipidemia, unspecified
CPT/HCPCS: 96376; 99284; 96361; 96374; 96375; 36415; 87086; 83690; 85025; 80053; 81001; 74177; A9270; J2765; J2270; J7030

== ENCOUNTER 2018-02-27 00:51 | Inpatient (IN) | payer MEDICARE, MEDICAID ==
[2018-02-27] MEDS ORDERED: METOCLOPRAMIDE HCL ORAL SOLN 10 MG/10 ML UDCUP PO ONE (01:49)
[2018-02-27] MEDS ORDERED: MORPHINE SULFATE 10 MG/ML INJ IV ONE ×2 (01:49→07:43)
[2018-02-27] MEDS ORDERED: NORMAL SALINE 1000 ML 1,000 ML IV ONE (01:51)
--- NOTE | 2018-02-27 01:52 | ER Document Report ---
ED Medical Screen (RME) - General TRAVEL OUTSIDE OF THE [place] IN LAST 30 DAYS: No <ANT REED - Last Filed: 02/27/18 01:51> <LORETTA ZIMMERMAN - Last Filed: 02/27/18 09:54> - General Chief Complaint: Abdominal Pain Stated Complaint: ABDOMINAL PAIN Time Seen by Provider: 02/27/18 01:49 Notes: 68 years old female with a history of diabetes, pancreatitis presents today with mid abdominal pain radiating the back since 9:00. And also she checked her sugar it was over 500. She is on Humalog insulin. Her last meal was 3 PM. Denies any fever chills but had nausea no vomiting. Denies any diarrhea or constipation. Denies any dysuria frequency urgency. (ANT REED) - Related Data Allergies/Adverse Reactions: No Known Allergies Allergy (Verified 01/08/17 13:48) Past Medical History - Past Medical History Cardiac Medical History: Reports: Hx Hypertension Denies: Hx Coronary Artery Disease, Hx Heart Attack Pulmonary Medical History: Denies: Hx Asthma, Hx Bronchitis, Hx COPD, Hx Pneumonia Neurological Medical History: Denies: Hx Cerebrovascular Accident, Hx Seizures Endocrine Medical History: Reports: Hx Diabetes Mellitus Type 1, Hx Diabetes Mellitus Type 2 Renal/ Medical History: Denies: Hx Peritoneal Dialysis GI Medical History: Reports: Hx Gastroesophageal Reflux Disease Musculoskeltal Medical History: Denies Hx Arthritis Past Surgical History: Reports: Hx Cholecystectomy, Hx Hysterectomy, Hx Vascular Surgery - IVC filter - Immunizations Immunizations up to date: No Hx Diphtheria, Pertussis, Tetanus Vaccination: Yes <ANT REED - Last Filed: 02/27/18 01:51> - Vital signs Vitals: Temp Pulse Resp BP Pulse Ox 98.0 F 80 15 137/67 H 100 02/27/18 01:07 02/27/18 01:07 02/27/18 01:07 02/27/18 01:07 02/27/18 01:07 Course - Laboratory Result Diagrams: 02/27/18 02:30 02/27/18 03:40 <LORETTA ZIMMERMAN - Last Filed: 02/27/18 09:54> - Vital Signs Vital signs: Temp Pulse Resp BP Pulse Ox 98.0 F 80 11 L 131/81 H 98 02/27/18 01:07 02/27/18 01:07 02/27/18 09:00 02/27/18 09:00 02/27/18 09:00 - Laboratory Laboratory results interpreted by me: 02/27/18 02/27/18 02/27/18 02:05 02:30 03:40 WBC 3.8 L Hgb 11.7 L Hct 35.8 L Monocytes % 13.2 H Glucose 190 H POC Glucose 245 H Doctor's Discharge <ANT REED - Last Filed: 02/27/18 01:51> <LORETTA ZIMMERMAN - Last Filed: 02/27/18 09:54> - Discharge Clinical Impression: Pancreatitis Qualifiers: Chronicity: acute Pancreatitis type: unspecified pancreatitis type Acute pancreatitis complication: unspecified Qualified Code(s): K85.90 - Acute pancreatitis without necrosis or infection, unspecified Condition: Stable Disposition: ADMITTED INPATIENT Referrals: ROMEO DIAZ MD [Primary Care Provider] - Follow up as needed
[2018-02-27 03:11] LABS: ABSOLUTE EOSINOPHILS # (AUTO) 0.1 10^3/uL (0.0-0.6); ABSOLUTE LYMPHOCYTES (AUTO) 0.7 10^3/uL (0.5-4.7); ABSOLUTE MONOCYTES (AUTO) 0.5 10^3/uL (0.1-1.4); ABSOLUTE NEUT (AUTO) 2.4 10^3/uL (1.7-8.2); EOSINOPHILS % (AUTO) 2.6 % (0-6); HEMATOCRIT 35.8 % (36.0-47.0); HEMOGLOBIN 11.7 g/dL (12.0-15.5); LYMPHOCYTES % (AUTO) 19.4 % (13-45); MEAN CORPUSCULAR HEMOGLOBIN 27.3 pg (27.0-33.4); MEAN CORPUSCULAR HGB CONC 32.6 g/dL (32.0-36.0); MEAN CORPUSCULAR VOLUME 84 fl (80-97); MONOCYTES % (AUTO) 13.2 % (3-13); PLATELET COUNT 220 10^3/uL (150-450); RED BLOOD COUNT 4.27 10^6/uL (3.72-5.28); RED CELL DISTRIBUTION WIDTH 13.7 % (11.5-14.0); SEGMENTED NEUTROPHILS % (AUTO) 63.8 % (42-78); TOTAL CELLS COUNTED % (AUTO) 100 %; WHITE BLOOD COUNT 3.8 10^3/uL (4.0-10.5)
[2018-02-27] MEDS: NORMAL SALINE 1000 ML 1,000 ML IV PRN ×3 (03:20→10:00)
[2018-02-27 04:13] LABS: ALANINE AMINOTRANSFERASE 31 U/L (9-52); ALBUMIN 4.1 g/dL (3.5-5.0); ALKALINE PHOSPHATASE 51 U/L (38-126); ANION GAP 13 (5-19); ASPARTATE AMINO TRANSFERASE 21 U/L (14-36); BILIRUBIN,DIRECT 0.3 mg/dL (0.0-0.4); BILIRUBIN,TOTAL 0.3 mg/dL (0.2-1.3); BLOOD UREA NITROGEN 18 mg/dL (7-20); CALCIUM 9.5 mg/dL (8.4-10.2); CARBON DIOXIDE 27 mmol/L (22-30); CHLORIDE 102 mmol/L (98-107); GLUCOSE 190 mg/dL (75-110); POTASSIUM 4.3 mmol/L (3.6-5.0); SODIUM 141.5 mmol/L (137-145); TOTAL PROTEIN 6.5 g/dL (6.3-8.2)
--- NOTE | 2018-02-27 06:25 | RADIOLOGY REPORT (SQ) ---
EXAM DESCRIPTION: CT ABDOMEN PELVIS WITH IV CONTRAST COMPLETED DATE/TME: 02/27/2018 01:49 CLINICAL HISTORY: Left upper abdominal pain COMPARISON: 02/01/2018 TECHNIQUE: CT of the abdomen and pelvis performed following IV administration of 82 mL of Isovue-370. DLP: 1413.17 mGycm FINDINGS: Lung Bases: Mild bilateral dependent atelectasis. Bones: No destructive bone lesions identified. Degenerative change of the spine. Abdomen: Liver: The liver has normal size and density. No intrahepatic mass or biliary dilatation. Gallbladder: Prior cholecystectomy. Spleen, Pancreas, and Adrenal Glands: The head of the pancreas is unremarkable. Replacement of the body and tail of the pancreas. The spleen and adrenal glands are unremarkable. Kidneys: The kidneys have normal size and contour without evidence of solid mass or hydronephrosis. Right peripelvic cysts and extra renal pelvis. Bilateral Bosniak class I renal cysts. Vasculature: Aortoiliac atherosclerosis. IVC filter is unchanged in configuration. The portal vein is patent. The proximal visceral and renal arteries are patent. Stomach: The stomach and duodenum have normal course. Other: No free intraperitoneal air. Redemonstrated haziness of the mesentery at the mesenteric root with mild prominent mesenteric vessels as well as lymph nodes. Redemonstrated multiple ventral hernias containing fat. The periumbilical hernia contains a loop of nondilated bowel. Pelvis: Bladder: Urinary bladder is unremarkable. Bowel: No dilated loops of large or small bowel. Scattered diverticula of the colon. Appendix: Normal appendix. Pelvis: Prior hysterectomy. IMPRESSION: 1. Stable appearance of the mesentery with engorgement of the mesenteric vessels, mild enlargement of the mesenteric lymph nodes, and ill-defined haziness of the mesentery near the mesenteric root. These findings could be seen with sclerosing mesenteritis. Less likely considerations include carcinoid tumor desmoid tumor. Follow-up CT of the abdomen in 12 months recommended to document stability. 2. The head of the pancreas demonstrates no definite abnormalities however given adjacent haziness of the mesentery pancreatitis cannot be excluded. Correlation with serum lipase recommended. No evidence of pancreatic necrosis or peripancreatic fluid collection. 3. Fatty replacement of the body and tail of the pancreas is stable. 4. Multiple small ventral hernias are stable. This exam was performed according to our departmental dose-optimization program, which includes automated exposure control, adjustment of the mA and/or kV according to patient size and/or use of iterative reconstruction technique.
--- NOTE | 2018-02-27 06:42 | ER Document Report ---
ED General - General Chief Complaint: Abdominal Pain Stated Complaint: ABDOMINAL PAIN Time Seen by Provider: 02/27/18 01:49 TRAVEL OUTSIDE OF THE [place] IN LAST 30 DAYS: No - HPI Notes: 68-year-old female presents with 10/10 epigastric pain radiation to her back nothing made the pain better or worse. Has history of pancreatitis. Been associated with nausea vomiting feels like her pancreatitis. Patient states pain is been getting worse and worse for the last several days. - Related Data Allergies/Adverse Reactions: No Known Allergies Allergy (Verified 01/08/17 13:48) Past Medical History - Social History Smoking Status: Never Smoker Family History: Reviewed & Not Pertinent Patient has suicidal ideation: No Patient has homicidal ideation: No - Past Medical History Cardiac Medical History: Reports: Hx Hypertension Denies: Hx Coronary Artery Disease, Hx Heart Attack Pulmonary Medical History: Denies: Hx Asthma, Hx Bronchitis, Hx COPD, Hx Pneumonia Neurological Medical History: Denies: Hx Cerebrovascular Accident, Hx Seizures Endocrine Medical History: Reports: Hx Diabetes Mellitus Type 1, Hx Diabetes Mellitus Type 2 Renal/ Medical History: Denies: Hx Peritoneal Dialysis GI Medical History: Reports: Hx Gastroesophageal Reflux Disease Musculoskeltal Medical History: Denies Hx Arthritis Past Surgical History: Reports: Hx Cholecystectomy, Hx Hysterectomy, Hx Vascular Surgery - IVC filter - Immunizations Immunizations up to date: No Hx Diphtheria, Pertussis, Tetanus Vaccination: Yes Hx Pneumococcal Vaccination: 08/29/15 Review of Systems - Review of Systems Notes: REVIEW OF SYSTEMS: CONSTITUTIONAL: -fevers, -chills EENT: -eye pain, -difficulty swallowing, -nasal congestion CARDIOVASCULAR: -chest pain, -syncope. RESPIRATORY: -cough, -SOB GASTROINTESTINAL: + abdominal pain, + nausea, +vomiting, -diarrhea GENITOURINARY: -dysuria, -hematuria MUSCULOSKELETAL: -back pain, -neck pain SKIN: -rash or skin lesions. HEMATOLOGIC: -easy bruising or bleeding. LYMPHATIC: -swollen, enlarged glands. NEUROLOGICAL: -altered mental status or loss of consciousness, -headache, - neurologic symptoms PSYCHIATRIC: -anxiety, -depression. ALL OTHER SYSTEMS REVIEWED AND NEGATIVE. Physical Exam - Vital signs Vitals: Temp Pulse Resp BP Pulse Ox 98.0 F 80 15 137/67 H 100 02/27/18 01:07 02/27/18 01:07 02/27/18 01:07 02/27/18 01:07 02/27/18 01:07 - Notes Notes: PHYSICAL EXAMINATION: GENERAL: Well-appearing, well-nourished and in no mild distress. HEAD: Atraumatic, normocephalic. EYES: Pupils equal round and reactive to light, extraocular movements intact, sclera anicteric, conjunctiva are normal. ENT: nares patent, oropharynx clear without exudates. Moist mucous membranes. NECK: Normal range of motion, supple without lymphadenopathy LUNGS: Breath sounds clear to auscultation bilaterally and equal. No wheezes rales or rhonchi. HEART: Regular rate and rhythm without murmurs ABDOMEN: epigastric tenderness EXTREMITIES: Normal range of motion, no pitting or edema. No cyanosis. NEUROLOGICAL: Cranial nerves grossly intact. Normal speech, normal gait. Normal sensory and motor exams. PSYCH: Normal mood, normal affect. SKIN: Warm, Dry, normal turgor, no rashes or lesions noted. Course - Re-evaluation Re-evalutation: 02/27/18 07:39 Elderly female presents with concerning story of pancreatitis. This poorly controlled diabetic presents with intense pain. Given IV fluid resuscitation and IV pain management. Feeling much improved. Patient's CAT scan concerning for pancreatitis. Ringer patient's labs relatively unremarkable at this time. Patient will be admitted to the hospital for definitive management and observation. - Vital Signs Vital signs: Temp Pulse Resp BP Pulse Ox 98.0 F 80 17 125/86 H 97 02/27/18 01:07 02/27/18 01:07 02/27/18 07:00 02/27/18 07:00 02/27/18 07:00 - Laboratory Result Diagrams: 02/27/18 02:30 02/27/18 03:40 Laboratory results interpreted by me: 02/27/18 02/27/18 02/27/18 02:05 02:30 03:40 WBC 3.8 L Hgb 11.7 L Hct 35.8 L Monocytes % 13.2 H Glucose 190 H POC Glucose 245 H Discharge - Discharge Clinical Impression: Pancreatitis Qualifiers: Chronicity: acute Pancreatitis type: unspecified pancreatitis type Acute pancreatitis complication: unspecified Qualified Code(s): K85.90 - Acute pancreatitis without necrosis or infection, unspecified Condition: Stable Disposition: ADMITTED INPATIENT Admitting Provider: Hospitalist - Dr. Mescalero Referrals: ROMEO DIAZ MD [Primary Care Provider] - Follow up as needed
[2018-02-27 08:22] LABS: APPEARANCE,URINE CLEAR; BILIRUBIN,URINE NEGATIVE (NEGATIVE); COLOR,URINE COLORLESS; GLUCOSE, URINE NEGATIVE (NEGATIVE); KETONES,URINE NEGATIVE (NEGATIVE); LEUKOCYTE ESTERASE,URINE NEGATIVE (NEGATIVE); NITRITE,URINE NEGATIVE (NEGATIVE); PROTEIN,URINE NEGATIVE (NEGATIVE); URINE SPECIFIC GRAVITY 1.004; UROBILINOGEN,URINE NEGATIVE mg/dL (<2.0)
[2018-02-27] MEDS: MORPHINE SULFATE 10 MG/ML INJ IV PRN ×3 (13:51→21:59)
[2018-02-27] MEDS: DEXTROSE 5%-NORMAL SALINE 1,000 ML IV PRN (14:39)
[2018-02-27] MEDS ORDERED: DEXTROSE 50%-WATER 25 GM/50 ML DISP.SYRIN IV PRN ×2 (18:29)
[2018-02-27] MEDS ORDERED: DEXTROSE 40% GEL 15 GM TUBE PO PRN ×2 (18:29)
[2018-02-27] MEDS ORDERED: GLUCAGON,HUMAN RECOMB 1 MG INJ IM PRN (18:29)
[2018-02-27 19:11] LABS: INTERNATIONAL RATION (INR) 0.98; PROTHROMBIN TIME 13.5 SEC (11.4-15.4)
[2018-02-27 19:12] LABS: PARTIAL THROMBOPLASTIN TIME 28.1 SEC (23.5-35.8)
--- NOTE | 2018-02-27 19:16 | PDOC H&P ---
History of Present Illness Admission Date/PCP: 02/27/18 10:05 [facility] Patient complains of: Abdominal pain, Elevated blood glucose History of Present Illness: FRED MALAGON is a 68 year old female patient known to my practice who contacted me about 10pm last night with complain of elevated blood glucose, as high as 600mg/dL and showing of Hi on her home glucometer machine. She did not report any abdominal lazcano at that time and denied any symptoms suggestive of infectious process. She already administered her evening dose of Toujeo solostar insulin at the time of her call. She admitted to high sugar soda drink earlier same night. She was instructed on use of her Humalog insulin 15 units. Despite this intervention her blood glucose remain at above 500 mg/dL. she was subsequently instructed to seek medical attention at the ED. She reported associated abdominal pain, nausea, and vomiting. She localized pain to the epigastric region radiating to her back without any significant reliving or aggravating factor. She claimed that her abdominal pain have been getting worse over preceding several days. She reported compliance with her medications. She continue to denied any other associated infectious symptoms. Notable claimed of pancreatitis and claimed that her symptoms were very similar to her episodes of prior pancreatitis. Her laboratory evaluation were not supportive of acute pancreatitis but her CT scan of abdomen and pelvis findings made consideration of Pancreatitis likely. She was admitted to the hospital for further evaluation and management due to her ongoing nausea, vomiting and abdominal pain. Her morbidities include Diabetes mellitus type 2, Hypertension, Gastroesophageal Reflux Disease and surgical history including Cholecystectomy, Hysterectomy, and IVC filter placement with limb protrusion in vascular bed. Past Medical History Cardiac Medical History: Reports: Hypertension Denies: Coronary Artery Disease, Myocardial Infarction Pulmonary Medical History: Denies: Asthma, Bronchitis, Chronic Obstructive Pulmonary Disease (COPD), Pneumonia Neurological Medical History: Denies: Seizures Endocrine Medical History: Reports: Diabetes Mellitus Type 2 GI Medical History: Reports: Gastroesophageal Reflux Disease Musculoskeltal Medical History: Denies: Arthritis Psychiatric Medical History: Reports: Depression Hematology: Reports: Anemia Past Surgical History Past Surgical History: Reports: Cholecystectomy, Hysterectomy, Vascular Surgery - IVC filter Social History Smoking Status: Never Smoker Frequency of Alcohol Use: None Hx Recreational Drug Use: No Hx Prescription Drug Abuse: No - Advance Directive Resuscitation Status: Full Code Family History Family History: Reviewed & Not Pertinent Parental Family History Reviewed: Yes Children Family History Reviewed: Yes Sibling(s) Family History Reviewed.: Yes Medication/Allergy Home Medications: Aspirin [Adult Low Dose Aspirin EC] 81 mg PO QAM 02/27/18 Duloxetine HCl [Cymbalta] 60 mg PO QAM 02/27/18 Gemfibrozil [Lopid 600 mg Tablet] 600 mg PO BID 02/27/18 Insulin Glargine,Hum.rec.anlog [Toujeo Solostar] 58 units SQ QAM 02/27/18 Insulin Lispro [Humalog Kwikpen U-100] 0 units SQ .PERSLIDINGSCALE 02/27/18 Lisinopril [Zestril] 40 mg PO QAM 02/27/18 Metformin HCl [Glucophage 500 mg Tablet] 500 mg PO BID 02/27/18 Metoprolol Succinate [Toprol Xl 50 mg Tab.sr] 50 mg PO QAM 02/27/18 Gibson-3 Acid Ethyl Esters [Lovaza 1 gm Capsule] 1 gm PO BID 02/27/18 Omeprazole 20 mg PO QAM 02/27/18 Oxycodone HCl/Acetaminophen [Percocet 10-325 mg Tablet] 1 tab PO Q6HP PRN Allergies/Adverse Reactions: No Known Allergies Allergy (Verified 01/08/17 13:48) Review of Systems Constitutional: ABSENT: chills, fever(s), headache(s), weight gain, weight loss Eyes: ABSENT: visual disturbances Ears: ABSENT: hearing changes Nose, Mouth, and Throat: ABSENT: as per HPI, headache(s), mouth pain, sore throat, vertigo, other Cardiovascular: ABSENT: chest pain, dyspnea on exertion, edema, orthropnea, palpitations Respiratory: ABSENT: cough, hemoptysis Gastrointestinal: PRESENT: abdominal pain, nausea, vomiting. ABSENT: as per HPI , bloating, coffee ground emesis, constipation, diarrhea, dysphagia, heartburn, hematemesis, hematochezia, melena, other Genitourinary: ABSENT: dysuria, hematuria Musculoskeletal: PRESENT: back pain Integumentary: ABSENT: rash, wounds Neurological: ABSENT: abnormal gait, abnormal speech, confusion, dizziness, focal weakness, syncope Psychiatric: ABSENT: anxiety, depression, homidical ideation, suicidal ideation Endocrine: ABSENT: cold intolerance, heat intolerance, polydipsia, polyuria Hematologic/Lymphatic: ABSENT: easy bleeding, easy bruising, lymphadenopathy Allergic/Immunologic: ABSENT: seasonal rhinorrhea Physical Exam Vital Signs: Temp Pulse Resp BP Pulse Ox 98.0 F 93 16 122/75 99 02/27/18 15:41 02/27/18 15:41 02/27/18 15:41 02/27/18 15:41 02/27/18 15:41 Intake & Output 02/26/18 02/27/18 02/28/18 06:59 06:59 06:59 Intake Total 400 Balance 400 General appearance: PRESENT: mild distress - related to abdominal pain Head exam: PRESENT: atraumatic, normocephalic Eye exam: PRESENT: conjunctiva pink, EOMI, PERRLA. ABSENT: scleral icterus Mouth exam: PRESENT: moist Neck exam: PRESENT: full ROM. ABSENT: carotid bruit, JVD, lymphadenopathy, thyromegaly Respiratory exam: PRESENT: clear to auscultation winnie Cardiovascular exam: PRESENT: RRR. ABSENT: diastolic murmur, rubs, systolic murmur Pulses: PRESENT: +1 pedal pulses bilateral Vascular exam: PRESENT: normal capillary refill. ABSENT: pallor GI/Abdominal exam: PRESENT: guarding - minimal to deep palpation, normal bowel sounds, rebound, tenderness - epigastric and mid abdominal region. ABSENT: mass , organolmegaly Rectal exam: PRESENT: deferred Extremities exam: ABSENT: pedal edema Musculoskeletal exam: PRESENT: normal inspection Neurological exam: PRESENT: alert, awake, oriented to person, oriented to place , oriented to time, oriented to situation, CN II-XII grossly intact. ABSENT: motor sensory deficit Psychiatric exam: PRESENT: appropriate affect, normal mood. ABSENT: homicidal ideation, suicidal ideation Skin exam: PRESENT: dry, intact, warm. ABSENT: cyanosis, rash Results Laboratory Results: I reviewed her lab results on [facility] and made significant part of my medical decision making. Impressions: Abdomen/Pelvis CT 02/27/18 01:49 IMPRESSION: 1. Stable appearance of the mesentery with engorgement of the mesenteric vessels, mild enlargement of the mesenteric lymph nodes, and ill-defined haziness of the mesentery near the mesenteric root. These findings could be seen with sclerosing mesenteritis. Less likely considerations include carcinoid tumor desmoid tumor. Follow-up CT of the abdomen in 12 months recommended to document stability. 2. The head of the pancreas demonstrates no definite abnormalities however given adjacent haziness of the mesentery pancreatitis cannot be excluded. Correlation with serum lipase recommended. No evidence of pancreatic necrosis or peripancreatic fluid collection. 3. Fatty replacement of the body and tail of the pancreas is stable. 4. Multiple small ventral hernias are stable. This exam was performed according to our departmental dose-optimization program, which includes automated exposure control, adjustment of the mA and/or kV according to patient size and/or use of iterative reconstruction technique. Assessment & Plan - Diagnosis (1) Chronic recurrent pancreatitis Is this a current diagnosis for this admission?: Yes Plan: This is less likely in view of her chemistry findings. Other differential on CT scan finds will be further evaluated. See admitting attending physician orders. (2) Diabetes mellitus type 2, uncontrolled Qualifiers: Diabetes mellitus group home insulin use: with group home use Diabetes mellitus complication status: with hyperglycemia Qualified Code(s): E11.65 - Type 2 diabetes mellitus with hyperglycemia; Z79.4 - correction (current) use of insulin; Z79.4 - boil off machine operator cloth (current) use of insulin; Z79.4 - boil off machine operator cloth (current ) use of insulin; Z79.4 - correction (current) use of insulin Is this a current diagnosis for this admission?: Yes Plan: See admitting attending physician orders. (3) GERD (gastroesophageal reflux disease) Qualifiers: Esophagitis presence: esophagitis presence not specified Qualified Code(s) : K21.9 - Gastro-esophageal reflux disease without esophagitis Is this a current diagnosis for this admission?: Yes Plan: See admitting attending physician orders. (4) HTN (hypertension) Qualifiers: Hypertension type: essential hypertension Qualified Code(s): I10 - Essential (primary) hypertension Is this a current diagnosis for this admission?: Yes Plan: See admitting attending physician orders. (5) Anemia Qualifiers: Anemia type: unspecified type Qualified Code(s): D64.9 - Anemia, unspecified Is this a current diagnosis for this admission?: Yes Plan: See admitting attending physician orders. May be part of Sclerosis mesenteritis constellation symptoms. See admitting attending physician orders. (6) Depression with anxiety Is this a current diagnosis for this admission?: Yes Plan: See admitting attending physician orders. - Time Time Spent: 50 to 70 Minutes Medications reviewed and adjusted accordingly: Yes Anticipated discharge: Home Within: Other - Inpatient Certification Based on my medical assessment, after consideration of the patient's comorbidities, presenting symptoms, or acuity I expect that the services needed warrant INPATIENT care.: Yes I certify that my determination is in accordance with my understanding of Medicare's requirements for reasonable and necessary INPATIENT services [42 CFR 412.3e].: Yes Medical Necessity: Need Close Monitoring Due to Risk of Patient Decompensation, Need For IV Fluids, Need For Continuous Telemetry Monitoring, Need for Pain Control, Risk of Complication if Not Cared For in Hospital Post Hospital Care: D/C [employer]er Documentation - Plan Summary Plan Summary: See admitting attending physician orders.
[2018-02-27] MEDS ORDERED: ENOXAPARIN SODIUM INJ 40 MG/0.4 ML DISP.SYRIN SUBCUT ONE (20:30)
--- NOTE | 2018-02-27 21:42 | EKG REPORT ---
SEVERITY:- ABNORMAL ECG - SINUS RHYTHM LEFT ANTERIOR FASCICULAR BLOCK LEFT VENTRICULAR HYPERTROPHY : Confirmed by: Greta Flower MD 27-Feb-2018 21:41:36
[2018-02-27] MEDS: FAMOTIDINE INJ/PF 20 MG/2 ML SDV IV SCH (21:59)
[2018-02-28] MEDS: DEXTROSE 5%-NORMAL SALINE 1,000 ML IV PRN (01:38)
[2018-02-28] MEDS: MORPHINE SULFATE 10 MG/ML INJ IV PRN (03:17)
[2018-02-28] MEDS: ONDANSETRON 4 MG TAB.RAPDIS PO PRN ×3 (03:18→21:29)
[2018-02-28 05:31] LABS: ALANINE AMINOTRANSFERASE 32 U/L (9-52); ALBUMIN 3.5 g/dL (3.5-5.0); ALKALINE PHOSPHATASE 51 U/L (38-126); AMYLASE 54 U/L (30-110); ANION GAP 10 (5-19); ASPARTATE AMINO TRANSFERASE 35 U/L (14-36); BILIRUBIN,DIRECT 0.3 mg/dL (0.0-0.4); BILIRUBIN,TOTAL 0.3 mg/dL (0.2-1.3); BLOOD UREA NITROGEN 10 mg/dL (7-20); CALCIUM 8.9 mg/dL (8.4-10.2); CARBON DIOXIDE 29 mmol/L (22-30); CHLORIDE 109 mmol/L (98-107); GLUCOSE 95 mg/dL (75-110); LIPASE 16.2 U/L (23-300); POTASSIUM 4.5 mmol/L (3.6-5.0); SODIUM 147.9 mmol/L (137-145)
[2018-02-28 06:58] LABS: ABSOLUTE EOSINOPHILS # (AUTO) 0.1 10^3/uL (0.0-0.6); ABSOLUTE LYMPHOCYTES (AUTO) 0.6 10^3/uL (0.5-4.7); ABSOLUTE MONOCYTES (AUTO) 0.4 10^3/uL (0.1-1.4); ABSOLUTE NEUT (AUTO) 1.2 10^3/uL (1.7-8.2); BASOPHILS % (AUTO) 0.7 % (0-2); EOSINOPHILS % (AUTO) 5.6 % (0-6); HEMATOCRIT 35.7 % (36.0-47.0); HEMOGLOBIN 11.5 g/dL (12.0-15.5); LYMPHOCYTES % (AUTO) 24.6 % (13-45); MEAN CORPUSCULAR HEMOGLOBIN 27.1 pg (27.0-33.4); MEAN CORPUSCULAR HGB CONC 32.2 g/dL (32.0-36.0); MEAN CORPUSCULAR VOLUME 84 fl (80-97); MONOCYTES % (AUTO) 16.4 % (3-13); PLATELET COUNT 194 10^3/uL (150-450); RED BLOOD COUNT 4.25 10^6/uL (3.72-5.28); RED CELL DISTRIBUTION WIDTH 13.9 % (11.5-14.0); SEGMENTED NEUTROPHILS % (AUTO) 52.7 % (42-78); TOTAL CELLS COUNTED % (AUTO) 100 %
[2018-02-28 07:17] LABS: WHITE BLOOD COUNT 2.3 10^3/uL (4.0-10.5)
[2018-02-28] MEDS: LISINOPRIL 10 MG TABLET PO SCH (07:44)
[2018-02-28] MEDS: METOPROLOL SUCCINATE 50 MG TAB.SR.24H PO SCH (07:44)
[2018-02-28] MEDS ORDERED: (PENDING PHARMACY ID) (Lisinopril [Zestril] 40 MG) PO SCH (08:00)
[2018-02-28] MEDS ORDERED: (PENDING PHARMACY ID) (Oxycodone Hcl/Acetaminophen [Percocet 10-325 Mg Tablet] 1 TAB) PO PRN (08:12)
--- NOTE | 2018-02-28 08:20 | PDOC PROGRESS REPORT ---
Subjective Progress Note for:: 02/28/18 Subjective:: Patient reported improvement in her abdominal pain. No nausea or vomiting. No fever or chills. No chest pain or difficulty with breathing. Reason For Visit: PANCREATITIS Physical Exam Vital Signs: Temp Pulse Resp BP Pulse Ox 97.8 F 90 12 132/64 H 98 02/28/18 07:22 02/28/18 07:22 02/28/18 07:22 02/28/18 07:22 02/28/18 07:22 Intake & Output 02/27/18 02/28/18 03/01/18 06:59 06:59 06:59 Intake Total 1431 Output Total 500 Balance 931 Weight 77.1 kg General appearance: PRESENT: no acute distress, well-developed, well-nourished Head exam: PRESENT: atraumatic, normocephalic Eye exam: PRESENT: conjunctiva pink, EOMI, PERRLA. ABSENT: scleral icterus Mouth exam: PRESENT: moist Respiratory exam: PRESENT: clear to auscultation winnie Cardiovascular exam: PRESENT: RRR. ABSENT: diastolic murmur, rubs, systolic murmur Vascular exam: PRESENT: normal capillary refill. ABSENT: pallor GI/Abdominal exam: PRESENT: normal bowel sounds, soft. ABSENT: distended, guarding, mass, organolmegaly, rebound, tenderness Extremities exam: ABSENT: pedal edema Musculoskeletal exam: PRESENT: normal inspection Neurological exam: PRESENT: alert, awake, oriented to person, oriented to place , oriented to time, oriented to situation, CN II-XII grossly intact. ABSENT: motor sensory deficit Psychiatric exam: PRESENT: appropriate affect, normal mood. ABSENT: homicidal ideation, suicidal ideation Skin exam: PRESENT: dry, intact, warm. ABSENT: cyanosis, rash Results Laboratory Results: 02/28/18 06:29 02/28/18 04:05 02/27/18 02/28/18 02/28/18 18:56 04:05 04:05 WBC Cancelled RBC Cancelled Hgb Cancelled Hct Cancelled MCV Cancelled MCH Cancelled MCHC Cancelled RDW Cancelled Plt Count Cancelled Seg Neutrophils % Cancelled Lymphocytes % Cancelled Monocytes % Cancelled Eosinophils % Cancelled Basophils % Cancelled Absolute Neutrophils Cancelled Absolute Lymphocytes Cancelled Absolute Monocytes Cancelled Absolute Eosinophils Cancelled Absolute Basophils Cancelled Sodium 147.9 H Potassium 4.5 Chloride 109 H Carbon Dioxide 29 Anion Gap 10 BUN 10 Creatinine 0.66 Est GFR ( Amer) > 60 Est GFR (Non-Af Amer) > 60 Glucose 95 Calcium 8.9 Total Bilirubin 0.3 AST 35 ALT 32 Alkaline Phosphatase 51 C-Reactive Protein 6.0 Total Protein 6.0 L Albumin 3.5 Amylase 54 Lipase 16.2 L 02/28/18 06:29 WBC 2.3 L D RBC 4.25 Hgb 11.5 L Hct 35.7 L MCV 84 MCH 27.1 MCHC 32.2 RDW 13.9 Plt Count 194 Seg Neutrophils % 52.7 Lymphocytes % 24.6 Monocytes % 16.4 H Eosinophils % 5.6 Basophils % 0.7 Absolute Neutrophils 1.2 L Absolute Lymphocytes 0.6 Absolute Monocytes 0.4 Absolute Eosinophils 0.1 Absolute Basophils 0.0 Sodium Potassium Chloride Carbon Dioxide Anion Gap BUN Creatinine Est GFR ( Amer) Est GFR (Non-Af Amer) Glucose Calcium Total Bilirubin AST ALT Alkaline Phosphatase C-Reactive Protein Total Protein Albumin Amylase Lipase Impressions: Abdomen/Pelvis CT 02/27/18 01:49 IMPRESSION: 1. Stable appearance of the mesentery with engorgement of the mesenteric vessels, mild enlargement of the mesenteric lymph nodes, and ill-defined haziness of the mesentery near the mesenteric root. These findings could be seen with sclerosing mesenteritis. Less likely considerations include carcinoid tumor desmoid tumor. Follow-up CT of the abdomen in 12 months recommended to document stability. 2. The head of the pancreas demonstrates no definite abnormalities however given adjacent haziness of the mesentery pancreatitis cannot be excluded. Correlation with serum lipase recommended. No evidence of pancreatic necrosis or peripancreatic fluid collection. 3. Fatty replacement of the body and tail of the pancreas is stable. 4. Multiple small ventral hernias are stable. This exam was performed according to our departmental dose-optimization program, which includes automated exposure control, adjustment of the mA and/or kV according to patient size and/or use of iterative reconstruction technique. Assessment & Plan - Diagnosis (1) Chronic recurrent pancreatitis Is this a current diagnosis for this admission?: Yes Plan: See attending physician orders. Restart oral feeding. (2) Diabetes mellitus type 2, uncontrolled Qualifiers: Diabetes mellitus termite inspector insulin use: with retirement use Diabetes mellitus complication status: with hyperglycemia Qualified Code(s): E11.65 - Type 2 diabetes mellitus with hyperglycemia; Z79.4 - rat exterminator (current) use of insulin; Z79.4 - rat exterminator (current) use of insulin; Z79.4 - [facility] (current ) use of insulin; Z79.4 - [facility] (current) use of insulin Is this a current diagnosis for this admission?: Yes Plan: See attending physician orders. I will increase Metformin to 1000 mg po bid. Hold off on restarting Toujeo Insulin for now. Maintain on sliding scale coverage. (3) GERD (gastroesophageal reflux disease) Qualifiers: Esophagitis presence: esophagitis presence not specified Qualified Code(s) : K21.9 - Gastro-esophageal reflux disease without esophagitis Is this a current diagnosis for this admission?: Yes Plan: Maintain on current medication management. See attending physician orders. (4) HTN (hypertension) Qualifiers: Hypertension type: essential hypertension Qualified Code(s): I10 - Essential (primary) hypertension Is this a current diagnosis for this admission?: Yes Plan: Maintain on current medication management. See attending physician orders. (5) Anemia Qualifiers: Anemia type: unspecified type Qualified Code(s): D64.9 - Anemia, unspecified Is this a current diagnosis for this admission?: Yes Plan: Maintain on current medication management. See attending physician orders. (6) Depression with anxiety Is this a current diagnosis for this admission?: Yes Plan: Maintain on current medication management. See attending physician orders. - Time Time Spent with patient: 25-34 minutes Medications reviewed and adjusted accordingly: Yes Anticipated discharge: Home Within: Other - Inpatient Certification Based on my medical assessment, after consideration of the patient's comorbidities, presenting symptoms, or acuity I expect that the services needed warrant INPATIENT care.: Yes I certify that my determination is in accordance with my understanding of Medicare's requirements for reasonable and necessary INPATIENT services [42 CFR 412.3e].: Yes Medical Necessity: Need Close Monitoring Due to Risk of Patient Decompensation, Need For IV Fluids, Need For Continuous Telemetry Monitoring, Need for Pain Control, Risk of Complication if Not Cared For in Hospital - Plan Summary Plan Summary: Maintain on current medication management. See attending physician orders.
[2018-02-28] MEDS: OXYCODONE HCL IR 5 MG TABLET PO PRN ×3 (09:27→21:30)
[2018-02-28] MEDS: OXYCODONE-ACETAMINOPHEN 5-325 MG TABLET PO PRN ×3 (09:28→21:30)
[2018-02-28] MEDS: OMEGA-3 ACID ETHYL ESTERS 1 GM CAPSULE PO SCH ×2 (09:29→17:58)
[2018-02-28] MEDS: GEMFIBROZIL 600 MG TABLET PO SCH ×2 (09:29→17:58)
[2018-02-28] MEDS: ENOXAPARIN SODIUM INJ 40 MG/0.4 ML DISP.SYRIN SUBCUT SCH (09:30)
[2018-02-28] MEDS: FAMOTIDINE INJ/PF 20 MG/2 ML SDV IV SCH ×2 (09:31→21:29)
[2018-02-28] MEDS: NORMAL SALINE 1000 ML 1,000 ML IV PRN ×2 (09:34→21:29)
[2018-02-28] MEDS: INSULIN LISPRO 100 UNIT/ML 3 ML VIAL SUBCUT PRN (16:03)
[2018-02-28] MEDS ORDERED: METFORMIN HCL 500 MG TABLET PO SCH (17:00)
[2018-03-01] MEDS: ONDANSETRON 4 MG TAB.RAPDIS PO PRN ×2 (07:52→12:43)
[2018-03-01] MEDS: LISINOPRIL 10 MG TABLET PO SCH (07:53)
[2018-03-01] MEDS: METFORMIN HCL 500 MG TABLET PO SCH ×3 (07:53→17:10)
[2018-03-01] MEDS: METOPROLOL SUCCINATE 50 MG TAB.SR.24H PO SCH (07:54)
[2018-03-01] MEDS: OXYCODONE-ACETAMINOPHEN 5-325 MG TABLET PO PRN (07:54)
[2018-03-01] MEDS: OXYCODONE HCL IR 5 MG TABLET PO PRN (07:54)
[2018-03-01] MEDS ORDERED: ASPIRIN 81 MG TABLET, ENT COATED PO SCH (08:00)
[2018-03-01] MEDS ORDERED: DULOXETINE HCL 30 MG CAPSULE.DR PO SCH (08:00)
[2018-03-01] MEDS: GEMFIBROZIL 600 MG TABLET PO SCH ×2 (11:11→17:11)
[2018-03-01] MEDS: OMEGA-3 ACID ETHYL ESTERS 1 GM CAPSULE PO SCH ×2 (11:11→17:11)
[2018-03-01] MEDS: ENOXAPARIN SODIUM INJ 40 MG/0.4 ML DISP.SYRIN SUBCUT SCH (11:12)
[2018-03-01] MEDS: FAMOTIDINE INJ/PF 20 MG/2 ML SDV IV SCH (11:12)
[2018-03-01] MEDS: INSULIN LISPRO 100 UNIT/ML 3 ML VIAL SUBCUT PRN (12:30)
[2018-03-01] MEDS: NORMAL SALINE 1000 ML 1,000 ML IV PRN (12:34)
[2018-03-01 16:39] VITALS: BP 137/67
--- NOTE | 2018-03-01 16:41 | PDOC DISCHARGE SUMMARY ---
General - Admit/Disc Date/PCP Admission Date/Primary Care Provider: 02/27/18 10:05 ROMEO DIAZ Discharge Date: 03/01/18 - Discharge Diagnosis (1) Chronic recurrent pancreatitis Is this a current diagnosis for this admission?: Yes (2) Diabetes mellitus type 2, uncontrolled Is this a current diagnosis for this admission?: Yes (3) GERD (gastroesophageal reflux disease) Is this a current diagnosis for this admission?: Yes (4) HTN (hypertension) Is this a current diagnosis for this admission?: Yes (5) Anemia Is this a current diagnosis for this admission?: Yes (6) Depression with anxiety Is this a current diagnosis for this admission?: Yes - Additional Information Resuscitation Status: Full Code Discharge Diet: Cardiac, Diabetic Discharge Activity: Activity As Tolerated Prescriptions: Metformin HCl [Glucophage 500 mg Tablet] 500 mg PO AC #90 tablet Ondansetron [Zofran Odt 4 mg Tablet] 4 mg PO Q4HP PRN #60 tab.rapdis PRN Reason: Home Medications: Aspirin [Adult Low Dose Aspirin EC] 81 mg PO QAM 02/27/18 Duloxetine HCl [Cymbalta] 60 mg PO QAM 02/27/18 Gemfibrozil [Lopid 600 mg Tablet] 600 mg PO BID 02/27/18 Insulin Glargine,Hum.rec.anlog [Toujeo Solostar] 58 units SQ QAM 02/27/18 Insulin Lispro [Humalog Kwikpen U-100] 0 units SQ .PERSLIDINGSCALE 02/27/18 Lisinopril [Zestril] 40 mg PO QAM 02/27/18 Metoprolol Succinate [Toprol Xl 50 mg Tab.sr] 50 mg PO QAM 02/27/18 Ellington-3 Acid Ethyl Esters [Lovaza 1 gm Capsule] 1 gm PO BID 02/27/18 Omeprazole 20 mg PO QAM 02/27/18 Oxycodone HCl/Acetaminophen [Percocet 10-325 mg Tablet] 1 tab PO Q6HP PRN Metformin HCl [Glucophage 500 mg Tablet] 500 mg PO AC #90 tablet 03/01/18 Ondansetron [Zofran Odt 4 mg Tablet] 4 mg PO Q4HP PRN #60 tab.rapdis 03/01/18 History of Present Illness Patient complains of: Abdominal Pian and Elevated blood glucose History of Present Illness: FRED MALAGON is a 68 year old female patient known to my practice who contacted me about 10pm last night with complain of elevated blood glucose, as high as 600mg/dL and showing of Hi on her home glucometer machine. She did not report any abdominal lazcano at that time and denied any symptoms suggestive of infectious process. She already administered her evening dose of Toujeo Solostar insulin at the time of her call. She admitted to high sugar soda drink earlier same night. She was instructed on use of her Humalog insulin 15 units. Despite this intervention her blood glucose remain at above 500 mg/dL. she was subsequently instructed to seek medical attention at the ED. She reported associated abdominal pain, nausea, and vomiting. She localized pain to the epigastric region radiating to her back without any significant reliving or aggravating factor. She claimed that her abdominal pain have been getting worse over preceding several days. She reported compliance with her medications. She continue to denied any other associated infectious symptoms. Notable claimed of pancreatitis and claimed that her symptoms were very similar to her episodes of prior pancreatitis. Her laboratory evaluation were not supportive of acute pancreatitis but her CT scan of abdomen and pelvis findings made consideration of Pancreatitis likely. She was admitted to the hospital for further evaluation and management due to her ongoing nausea, vomiting and abdominal pain. Her morbidities include Diabetes mellitus type 2, Hypertension, Gastroesophageal Reflux Disease and surgical history including Cholecystectomy, Hysterectomy, and IVC filter placement with limb protrusion in vascular bed. Hospital Course Hospital Course: She was managed with NPO status , IV Morphine and IV fluid support with improvement in her abdominal pain and associated symptoms. She was eventually restarted on oral feeding without much issue except occasional nausea that resolved with Zofran therapy. Her listed differential etiologies for CT scan abdomen and Pelvic findings so far are negative. she completed 24 hours urine collection for 5-HIAA level and I will follow up on the result at post hospitalization office visit as schedules. She denied any chest pain or difficulty with breathing. Resolution of abdominal pain and significant improvement in her glycemic control. She will be discharged home today and follow up in the office as instructed upon discharge. Physical Exam Vital Signs: Temp Pulse Resp BP Pulse Ox 98.0 F 69 16 132/65 H 98 03/01/18 11:09 03/01/18 14:00 03/01/18 11:09 03/01/18 11:09 03/01/18 11:09 Intake & Output 02/28/18 03/01/18 03/02/18 06:59 06:59 06:59 Intake Total 1431 2635 100 Output Total 500 1800 900 Balance 931 835 -800 Weight 77.1 kg 76.4 kg Physical Exam: General appearance: PRESENT: no acute distress, well-developed, well-nourished Head exam: PRESENT: atraumatic, normocephalic Eye exam: PRESENT: conjunctiva pink, EOMI, PERRLA. ABSENT: scleral icterus Mouth exam: PRESENT: moist Respiratory exam: PRESENT: clear to auscultation winnie Cardiovascular exam: PRESENT: RRR. ABSENT: diastolic murmur, rubs, systolic murmur Vascular exam: PRESENT: normal capillary refill. ABSENT: pallor GI/Abdominal exam: PRESENT: normal bowel sounds, soft. ABSENT: distended, guarding, mass, organomegaly, rebound, tenderness Extremities exam: ABSENT: pedal edema Musculoskeletal exam: PRESENT: normal inspection Neurological exam: PRESENT: alert, awake, oriented to person, oriented to place , oriented to time, oriented to situation, CN II-XII grossly intact. ABSENT: motor sensory deficit Psychiatric exam: PRESENT: appropriate affect, normal mood. ABSENT: homicidal ideation, suicidal ideation Skin exam: PRESENT: dry, intact, warm. ABSENT: cyanosis, rash Results Laboratory Results: 02/28/18 06:29 02/28/18 04:05 Impressions: Abdomen/Pelvis CT 02/27/18 01:49 IMPRESSION: 1. Stable appearance of the mesentery with engorgement of the mesenteric vessels, mild enlargement of the mesenteric lymph nodes, and ill-defined haziness of the mesentery near the mesenteric root. These findings could be seen with sclerosing mesenteritis. Less likely considerations include carcinoid tumor desmoid tumor. Follow-up CT of the abdomen in 12 months recommended to document stability. 2. The head of the pancreas demonstrates no definite abnormalities however given adjacent haziness of the mesentery pancreatitis cannot be excluded. Correlation with serum lipase recommended. No evidence of pancreatic necrosis or peripancreatic fluid collection. 3. Fatty replacement of the body and tail of the pancreas is stable. 4. Multiple small ventral hernias are stable. This exam was performed according to our departmental dose-optimization program, which includes automated exposure control, adjustment of the mA and/or kV according to patient size and/or use of iterative reconstruction technique. Qualifiers - * PATIENT BEING DISCHARGED WITH ANY OF THE FOLLOWING DIAGNOSIS: No Plan Discharge Plan: D/C home today. Follow up in the office as instructed upon discharge.
== END 2018-03-01 17:36 | disposition home or self-care (01) | DRG 440 ==
LOC: ER 00:51 → EH 10:05 → 3W 12:37
PROVIDERS: ADMIT Internal Medicine Geriatric Medicine; ATTEND Internal Medicine Geriatric Medicine
DX: K86.1 Other chronic pancreatitis (principal); E11.65 Type 2 diabetes mellitus with hyperglycemia; I10 Essential (primary) hypertension; D64.9 Anemia, unspecified; F41.9 Anxiety disorder, unspecified; F32.9 Major depressive disorder, single episode, unspecified; Z79.4 Long term (current) use of insulin; Z95.828 Presence of other vascular implants and grafts; Z90.49 Acquired absence of other specified parts of digestive tract; Z90.710 Acquired absence of both cervix and uterus
CPT/HCPCS: 36415; 74177; 80053; 81001; 82150; 82962; 83036; 83497; 83690; 84484; 85025; 85610; 85652; 85730; 86140; 93005; 93010; 96361; 96374; 96376; 99285; J1650; J1815; J2270; J3490; J7030; S0028; S0119

== ENCOUNTER → 2018-03-29 | Outpatient (CLI) | payer MEDICARE, MEDICAID | LOC: LAB 07:54 | PROVIDERS: ATTEND Internal Medicine Gastroenterology | DX: K59.00 Constipation, unspecified (principal); R10.13 Epigastric pain; R11.0 Nausea; K86.9 Disease of pancreas, unspecified | CPT/HCPCS: 36415; 82565 ==

== ENCOUNTER 2018-04-02 11:49 | Emergency (ER) | payer MEDICARE, MEDICAID ==
[2018-04-02 12:27] VITALS: BP 143/89
--- NOTE | 2018-04-02 12:49 | ER Document Report ---
HPI - HPI Patient complains to provider of: r wrist pain Onset: Other - 3 days Onset/Duration: Persistent Quality of pain: Achy Pain Level: 5 Context: Patient presents complaining of right wrist pain for the past 3 days. Patient states pain does wake her up occasionally at night. Pain increases with flexion or hyperextension of her wrist. Patient is right-hand dominant. Patient does report previous history of carpal tunnel syndrome in the past. Associated Symptoms: Other - Right wrist pain Exacerbated by: Movement Relieved by: Denies Similar symptoms previously: Yes Recently seen / treated by doctor: No - ROS ROS below otherwise negative: Yes Systems Reviewed and Negative: Yes All other systems reviewed and negative - NEURO Neurology: DENIES: Weakness - REPRODUCTIVE Reproductive: DENIES: : - MUSCULOSKELETAL Musculoskeletal: REPORTS: Extremity pain - DERM Skin Color: Normal Skin Problems: None Past Medical History - General Information source: Patient - Social History Smoking Status: Never Smoker Chew tobacco use (# tins/day): No Frequency of alcohol use: None Drug Abuse: None Family History: Reviewed & Not Pertinent Patient has suicidal ideation: No Patient has homicidal ideation: No - Past Medical History Cardiac Medical History: Reports: Hx Hypertension Denies: Hx Coronary Artery Disease, Hx Heart Attack Pulmonary Medical History: Denies: Hx Asthma, Hx Bronchitis, Hx COPD, Hx Pneumonia Neurological Medical History: Denies: Hx Cerebrovascular Accident, Hx Seizures Endocrine Medical History: Reports: Hx Diabetes Mellitus Type 1, Hx Diabetes Mellitus Type 2 Renal/ Medical History: Denies: Hx Peritoneal Dialysis GI Medical History: Reports: Hx Gastroesophageal Reflux Disease Musculoskeletal Medical History: Denies Hx Arthritis Psychiatric Medical History: Reports: Hx Depression Past Surgical History: Reports: Hx Cholecystectomy, Hx Hysterectomy, Hx Vascular Surgery - IVC filter - Immunizations Immunizations up to date: No Hx Diphtheria, Pertussis, Tetanus Vaccination: Yes Hx Pneumococcal Vaccination: 08/29/15 Vertical Provider Document - CONSTITUTIONAL Agree With Documented VS: Yes Exam Limitations: No Limitations General Appearance: WD/WN, No Apparent Distress - INFECTION CONTROL TRAVEL OUTSIDE OF THE [place] IN LAST 30 DAYS: No - HEENT HEENT: Atraumatic, Normocephalic - NECK Neck: Normal Inspection, Supple - RESPIRATORY Respiratory: Breath Sounds Normal, No Respiratory Distress - CARDIOVASCULAR Pulses: Normal: Radial - MUSCULOSKELETAL/EXTREMETIES Musculoskeletal/Extremeties: MAEW, FROM, Tender - r wrist, No Edema Notes: Patient with generalized right wrist tenderness dorsal and volar aspect. Tenderness increases with flexion or extension of the wrist. Skin color and temperature overlying joint. Positive Phalen and Tinel sign - NEURO Level of Consciousness: Awake, Alert, Appropriate Motor/Sensory: No Motor Deficit - DERM Integumentary: Warm, Dry, No Rash Course - Vital Signs Vital signs: Temp Pulse Resp BP Pulse Ox 98.6 F 103 H 18 143/89 H 96 04/02/18 12:20 04/02/18 12:20 04/02/18 12:20 04/02/18 12:20 04/02/18 12:20 Procedures - Immobilization Right Wrist Pre-Proc Neuro Vasc Exam: Normal Immobilizer type: Cock-up Performed by: PCT Post-Proc Neuro Vasc Exam: Normal Alignment checked and good: Yes Discharge - Discharge Clinical Impression: Carpal tunnel syndrome of right wrist Condition: Stable Disposition: HOME, SELF-CARE Instructions: Carpal Tunnel Syndrome ([facility]), Temporary Splint ([facility]) Additional Instructions: Return immediately for any new or worsening symptoms Followup with your primary care provider, call tomorrow to make a followup appointment Follow-up with orthopedics for further evaluation of your wrist pain Take your pain medication that you have at home as prescribed Prescriptions: Diclofenac Sodium [Voltaren] 1 applic TP QID #100 gel..gm. Referrals: LEVI HARDING DO [NO LOCAL MD] - Follow up as needed [facility] [Provider Group] - Follow up as needed
== END 2018-04-02 13:04 | disposition home or self-care (01) ==
LOC: ER 11:49
DX: G56.01 Carpal tunnel syndrome, right upper limb (principal); M25.531 Pain in right wrist; I10 Essential (primary) hypertension; E11.9 Type 2 diabetes mellitus without complications
CPT/HCPCS: 99283; L3908

== ENCOUNTER → 2018-04-18 | Outpatient (CLI) | payer MEDICARE, MEDICAID ==
--- NOTE | 2018-04-18 14:55 | RADIOLOGY REPORT (SQ) ---
EXAM DESCRIPTION: NOT FOR OR FLUORO TO 1 HR COMPLETED DATE/TIME: 04/18/2018 1:28 pm REASON FOR STUDY: R06.00 DYSPNEA, UNSPECIFIED R91.8 OTHER NONSPECIFIC ABNORMAL FINDING OF VALARIE R91.8 OTHER NONSPECIFIC ABNORMAL FINDING OF LUNG FIELD R06.00 DYSPNEA, UNSPECIFIED COMPARISON: CHEST FILMS 09/23/2008, 01/25/2015, 11/11/2015 FLUOROSCOPY TIME: 15 SECONDS 2 digital radiographic images saved to PACS. TECHNIQUE: Intra-operative images acquired during surgical procedure to evaluate progress. NUMBER OF IMAGES: 2 digital radiographic images LIMITATIONS: None. FINDINGS: Under direct visualization with fluoroscopy, patient took deep inspiration and deep expira tion. Although the right hemidiaphragm is elevated with respect to the left hemidiaphragm, both move synchronously with inspiration/ expiration. There are clips right upper quadrant post cholecystectomy. IMPRESSION: No fluoroscopic evidence of right or left hemidiaphragmatic paralysis COMMENT: Quality ID [id number]: Final reports for procedures using fluoroscopy that document radiation exp osure indices, or exposure time and number of fluorographic images (if radiation exposure indices are not available) Please consult full operative report of the attending physician for description of the procedure. TECHNICAL DOCUMENTATION: JOB ID: [id number] [employer]- All Rights Reserved Reading location - IP/workstation name: [email or web address]
== END ==
LOC: RAD 14:41
PROVIDERS: ATTEND Internal Medicine Pulmonary Disease
DX: R91.8 Other nonspecific abnormal finding of lung field (principal); R06.00 Dyspnea, unspecified
CPT/HCPCS: 76000

== ENCOUNTER → 2018-08-05 | Outpatient (CLI) | payer MEDICARE, MEDICAID ==
--- NOTE | 2018-08-05 14:05 | RADIOLOGY REPORT (SQ) ---
EXAM DESCRIPTION: U/S RETROPERITON (RENAL/AORTA) COMPLETED DATE/TIME: 08/05/2018 10:32 am REASON FOR STUDY: HYDRONEPHROSIS (N13.1) N13.1 HYDRONEPHROSIS W URETERAL STRICTURE, NEC COMPARISON: CT scan 718 TECHNIQUE: Dynamic and static grayscale images acquired of the kidneys and bladder and recorded on P ACS. Additional selected color Doppler and spectral images recorded. LIMITATIONS: None. FINDINGS: RIGHT KIDNEY: Normal size. Normal echogenicity. No solid or suspicious masses. Stab le hydronephrosis. No calcifications. LEFT KIDNEY: Normal size. Normal echogenicity. 3.3 cm cyst. No hydronephrosis. No calcificat ions. BLADDER: No masses. Ureteral jets. OTHER FINDINGS: No other significant finding. IMPRESSION: Stable right-sided hydronephrosis. There are bilateral ureteral jets. TECHNICAL DOCUMENTATION: JOB ID: [id number] [employer]- All Rights Reserved Reading location - IP/workstation name: [email or web address]
== END ==
LOC: RAD 10:00
PROVIDERS: ATTEND Urology
DX: N13.1 Hydronephrosis with ureteral stricture, not elsewhere classified (principal)
CPT/HCPCS: 76770

== ENCOUNTER → 2018-11-11 | Outpatient (CLI) | payer MEDICARE, MEDICAID ==
[2018-11-11 16:27] LABS: C-REACTIVE PROTEIN 11.3 mg/L (<10.0)
[2018-11-14 07:14] LABS: CYCLIC CITRUL PEPTIDE IGG/A AB 6 units (0-19)
== END ==
LOC: OD 15:08
PROVIDERS: ATTEND Orthopaedic Surgery
DX: M18.11 Unilateral primary osteoarthritis of first carpometacarpal joint, right hand (principal)
CPT/HCPCS: 36415; 84550; 85652; 86038; 86140; 86200; 86430

== ENCOUNTER 2019-03-20 02:15 | Emergency (ER) | payer MEDICARE, MEDICAID ==
--- NOTE | 2019-03-20 02:56 | ER Document Report ---
ED General - General Stated Complaint: LEG CRAMPS Time Seen by Provider: 03/20/19 02:32 Primary Care Provider: ROMEO DIAZ MD [Primary Care Provider] - Follow up in 3-5 days Notes: Patient is a 69-year-old female who presents the emergency department with a chief complaint of bilateral leg cramping. She states that her cramping has be en going on for the past few weeks, and may be longer. She states that tonight she felt the cramping was worse. She states that it feels like a jumping/pushing feeling in her legs he goes from her calves all the way up to her lower abdomen. Patient currently takes oxycodone 10 mg and her last dose was at 1900. TRAVEL OUTSIDE OF THE [place] IN LAST 30 DAYS: No - Related Data Allergies/Adverse Reactions: No Known Allergies Allergy (Verified 04/02/18 12:17) Past Medical History - Social History Smoking Status: Never Smoker Family History: Reviewed & Not Pertinent - Past Medical History Cardiac Medical History: Reports: Hx Hypertension Denies: Hx Coronary Artery Disease, Hx Heart Attack Pulmonary Medical History: Denies: Hx Asthma, Hx Bronchitis, Hx COPD, Hx Pneumonia Neurological Medical History: Denies: Hx Cerebrovascular Accident, Hx Seizures Endocrine Medical History: Reports: Hx Diabetes Mellitus Type 1, Hx Diabetes Mellitus Type 2 Renal/ Medical History: Denies: Hx Peritoneal Dialysis GI Medical History: Reports: Hx Gastroesophageal Reflux Disease Musculoskeletal Medical History: Denies Hx Arthritis Psychiatric Medical History: Reports: Hx Depression Past Surgical History: Reports: Hx Cholecystectomy, Hx Hysterectomy, Hx Vascular Surgery - IVC filter - Immunizations Immunizations up to date: No Hx Diphtheria, Pertussis, Tetanus Vaccination: Yes Hx Pneumococcal Vaccination: 08/29/15 Review of Systems - Review of Systems Notes: REVIEW OF SYSTEMS: CONSTITUTIONAL : Denies recent illness. Denies recent unintentional weight loss. Denies fever, chills, or sweats. EENT: Denies eye, ear, throat, or mouth pain, discharge, or symptoms. Denies nasal or sinus congestion. CARDIOVASCULAR: Denies chest pain. RESPIRATORY: Denies shortness of breath, cough, congestion, difficulty breathing, or wheezing. GASTROINTESTINAL: Denies nausea, vomiting, and diarrhea. Denies abdominal pain. Denies constipation. GENITOURINARY: Denies difficulty urinating, burning, blood in urine, urgency or frequency. MUSCULOSKELETAL: See HPI SKIN: Denies rash, itchiness, or lesions HEMATOLOGIC : Denies easy bruising or bleeding. LYMPHATIC: Denies swollen, painful, enlarged glands. NEUROLOGICAL: Denies no numbness or tingling denies weakness. Denies headache. Denies altered mental status. Denies alteration in speech. PSYCHIATRIC: Denies stress, anxiety, alteration in sleep patterns, or depression. All other systems reviewed and negative. Physical Exam - Vital signs Vitals: Temp Pulse Resp BP Pulse Ox 97.5 F 92 16 115/66 100 03/20/19 02:42 03/20/19 02:42 03/20/19 02:42 03/20/19 02:42 03/20/19 02:42 - Notes Notes: PHYSICAL EXAMINATION: GENERAL: Appears well, healthy, well-nourished, no acute distress. HEAD: Normocephalic, atraumatic. EYES: PERRL, conjunctiva normal, all extraocular movements intact, sclera nonicteric ENT: Moist mucous membranes. NECK: Supple, no noticeable swelling, redness, rash. Normal range of motion. LUNGS: Equal breath sounds bilaterally and clear to auscultation. No wheezes rales or rhonchi. CARDIOVASCULAR: S1-S2, regular rate, regular rhythm. Radial pulses 2+, normal. ABDOMEN: Normoactive bowel sounds. Soft, nontender, no guarding, no rebound tenderness, and no masses palpated. EXTREMITIES: Normal strength and range of motion, no pitting or edema. No cyanosis. NEUROLOGICAL: Moves all extremities upon command. Strength 5/5 in all extremities. PSYCH: Normal mood, normal affect. SKIN: Warm, dry. No rash, lesions, ulcerations noted. Normal skin turgor. Course - Re-evaluation Re-evalutation: 03/20/19 05:58 Patient's magnesium, chemistries, and hematology are all unremarkable at this time. There is no change from baseline. Patient states that she feels better after receiving Robaxin. She states that she does not have any leftover at home. She will receive a Robaxin prescription from here. She will follow-up with her primary care provider. Follow-up precautions were given. Verbal discharge instructions were given to the patient. They verbalized understanding. They are stable for discharge. - Vital Signs Vital signs: Temp Pulse Resp BP Pulse Ox 97.6 F 111 H 16 127/69 H 100 03/20/19 06:39 03/20/19 06:39 03/20/19 06:39 03/20/19 06:39 03/20/19 06:39 - Laboratory Result Diagrams: 03/20/19 03:16 03/20/19 03:16 Laboratory results interpreted by me: 03/20/19 03/20/19 03/20/19 03:16 03:16 04:28 WBC 3.8 L Hgb 11.0 L Hct 34.1 L MCH 26.4 L BUN 28 H Est GFR (Non-Af Amer) 59 L Ur Leukocyte Esterase TRACE H Discharge - Discharge Clinical Impression: Leg cramping Condition: Stable Disposition: HOME, SELF-CARE Additional Instructions: You are seen today in the emergency department for leg cramping. Your cramping got better after receiving Robaxin. Your labs were normal. Please follow-up with your primary care provider regards to this visit. Prescriptions: Methocarbamol [Robaxin 500 mg Tablet] 500 mg PO QID PRN #30 tablet PRN Reason: Referrals: ROMEO DIAZ MD [Primary Care Provider] - Follow up in 3-5 days
[2019-03-20 03:26] LABS: ABSOLUTE EOSINOPHILS # (AUTO) 0.1 10^3/uL (0.0-0.6); ABSOLUTE LYMPHOCYTES (AUTO) 0.7 10^3/uL (0.5-4.7); ABSOLUTE MONOCYTES (AUTO) 0.5 10^3/uL (0.1-1.4); ABSOLUTE NEUT (AUTO) 2.5 10^3/uL (1.7-8.2); BASOPHILS % (AUTO) 0.9 % (0-2); EOSINOPHILS % (AUTO) 3.3 % (0-6); HEMATOCRIT 34.1 % (36.0-47.0); LYMPHOCYTES % (AUTO) 17.8 % (13-45); MEAN CORPUSCULAR HEMOGLOBIN 26.4 pg (27.0-33.4); MEAN CORPUSCULAR HGB CONC 32.4 g/dL (32.0-36.0); MEAN CORPUSCULAR VOLUME 82 fl (80-97); MONOCYTES % (AUTO) 12.9 % (3-13); PLATELET COUNT 196 10^3/uL (150-450); RED BLOOD COUNT 4.18 10^6/uL (3.72-5.28); RED CELL DISTRIBUTION WIDTH 13.6 % (11.5-14.0); SEGMENTED NEUTROPHILS % (AUTO) 65.1 % (42-78); TOTAL CELLS COUNTED % (AUTO) 100 %; WHITE BLOOD COUNT 3.8 10^3/uL (4.0-10.5)
[2019-03-20] MEDS ORDERED: METHOCARBAMOL 500 MG TABLET PO ONE (03:39)
[2019-03-20 03:45] LABS: ALANINE AMINOTRANSFERASE 24 U/L (9-52); ALBUMIN 4.4 g/dL (3.5-5.0); ALKALINE PHOSPHATASE 72 U/L (38-126); ANION GAP 9 (5-19); ASPARTATE AMINO TRANSFERASE 26 U/L (14-36); BILIRUBIN,DIRECT 0.2 mg/dL (0.0-0.4); BILIRUBIN,TOTAL 0.2 mg/dL (0.2-1.3); BLOOD UREA NITROGEN 28 mg/dL (7-20); CALCIUM 10.1 mg/dL (8.4-10.2); CARBON DIOXIDE 24 mmol/L (22-30); CHLORIDE 107 mmol/L (98-107); GLUCOSE 92 mg/dL (75-110); POTASSIUM 4.8 mmol/L (3.6-5.0); TOTAL PROTEIN 7.1 g/dL (6.3-8.2)
[2019-03-20 04:54] LABS: APPEARANCE,URINE CLEAR; BILIRUBIN,URINE NEGATIVE (NEGATIVE); COLOR,URINE STRAW; GLUCOSE, URINE NEGATIVE (NEGATIVE); KETONES,URINE NEGATIVE (NEGATIVE); LEUKOCYTE ESTERASE,URINE TRACE (NEGATIVE); NITRITE,URINE NEGATIVE (NEGATIVE); PROTEIN,URINE NEGATIVE (NEGATIVE); URINE SPECIFIC GRAVITY 1.005; UROBILINOGEN,URINE NEGATIVE mg/dL (<2.0)
[2019-03-20 06:49] VITALS: BP 127/69
== END 2019-03-20 06:49 | disposition home or self-care (01) ==
LOC: ER 02:15
DX: R25.2 Cramp and spasm (principal); I10 Essential (primary) hypertension; E11.9 Type 2 diabetes mellitus without complications; K21.9 Gastro-esophageal reflux disease without esophagitis; Z90.49 Acquired absence of other specified parts of digestive tract; Z90.710 Acquired absence of both cervix and uterus
CPT/HCPCS: 99283; 36415; 83735; 85025; 80053; 81001; A9270

== ENCOUNTER → 2019-03-27 | Outpatient (CLI) | payer MEDICARE, MEDICAID | LOC: LAB 09:31 | PROVIDERS: ATTEND Internal Medicine Gastroenterology | DX: K59.00 Constipation, unspecified (principal); D12.0 Benign neoplasm of cecum; R93.3 Abnormal findings on diagnostic imaging of other parts of digestive tract | CPT/HCPCS: 36415; 82565 ==

== ENCOUNTER 2020-08-05 10:32 | Day surgery (SDC) | payer MEDICARE, MEDICAID ==
[~2020-08-05 10:32] MED LIST changes: +BUPIVACAINE HCL 0.75% INJ/PF (7.5 MG/1 ML) 10 ML SDV OD PRN; +CHONDR SU A NA/HYALUR INTRAOC KIT (SURGICARE) ONE; +EPINEPHRINE INJ/PF 1 MG/1 ML AMPULE ONE; -FUROSEMIDE INJ/PF 40 MG/4 ML SDV ONE; +KETOROLAC TROMETHAMINE 0.45% 4 DROP/0.4 ML DROPERETTE OD PRN; +LIDOCAINE 1%/PHENYLEPHRINE 1.5% 1 ML VIAL ONE; +LIDOCAINE 4% INJ/PF (40 MG/ML) 5 ML AMPUL OD PRN
[2020-08-05] MEDS: BESIFLOXACIN HCL 0.6% OPH SUSP 5 ML BOTTLE OD PRN ×4 (11:22→12:45)
[2020-08-05] MEDS: TETRACAINE HCL 0.5% OPH SOLN 4 ML OD PRN ×3 (11:22→12:20)
[2020-08-05] MEDS: TROPICAMIDE 1% OPH SOLN 15 ML OD PRN ×3 (11:22→11:51)
[2020-08-05] MEDS: CYCLOPENTOLATE 0.2%/PHENYLEPHRINE 1% OPH SOLN 2 ML OD PRN ×3 (11:22→11:51)
[2020-08-05] MEDS ORDERED: MIDAZOLAM 2 MG/2 ML INJ ONE (11:59)
[2020-08-05] MEDS: PREDNISOLONE ACETATE 1% OPH SUSP 5 ML OD PRN ×2 (12:45)
[2020-08-05] MEDS: DORZOLAMIDE HCL 2%/TIMOLOL MALEAT 0.5% OPH SOLN 10 ML OD PRN ×2 (12:45)
--- NOTE | 2020-08-06 08:13 | Operative Report ---
Operative Report-[facility] Operative Report: DATE OF SURGERY: [08/05/2020] PREOPERATIVE DIAGNOSIS: Cataract, right eye POSTOPERATIVE DIAGNOSIS: Cataract, right eye OPERATION: Cataract extraction with insertion of an IOL of the right eye. Intraocular Lens Model: [21.0 SN 60 WF] Patient was having difficulty seeing road signs SURGEON: Hilario Cueto MD ANESTHESIA: Topical PROCEDURE: After obtaining appropriate consent, the patient's right eye was prepped and draped in a sterile fashion as well as the surgeon in the sterile manner and cataract surgery was started. First a paracentesis blade was used to make a side-port incision. Viscoelastic was used to inflate the anterior chamber. Next a 2.4 mm incision was made with a 2.4 mm blade, clear corneal temporarily. A continuous capsulorrhexis was made using a cystotome and Utrata forceps. Following this hydrodissection was carried out to make the manny fully loose and mobile and it was rotated. Following this, a divide and conquer technique was used to phacoemulsify the manny. The remaining cortex was removed with an irrigation/aspiration. Provisc was instilled into the capsular bag to inflate the bag. The intraocular lens was placed. The remaining viscoelastic material was removed with irrigation/aspiration. Following this, the incision was found to be watertight. Besivance and Cosopt was instilled into the eye and a protective shield was placed over the eye. The patient was reurned to the postoperative recovery in a stable condition.
== END 2020-08-05 13:21 | disposition home or self-care (01) ==
LOC: SC 10:32
PROVIDERS: ATTEND Internal Medicine
DX: H25.811 Combined forms of age-related cataract, right eye (principal); E11.36 Type 2 diabetes mellitus with diabetic cataract; H35.413 Lattice degeneration of retina, bilateral; I10 Essential (primary) hypertension; Z79.4 Long term (current) use of insulin
CPT/HCPCS: 66984; V2632; J2250; J3490 ×2; A9270; J0171

== ENCOUNTER 2020-08-26 08:52 | Day surgery (SDC) | payer MEDICARE, MEDICAID ==
[~2020-08-26 08:52] MED LIST changes: -BUPIVACAINE HCL 0.75% INJ/PF (7.5 MG/1 ML) 10 ML SDV OD PRN; -CHONDR SU A NA/HYALUR INTRAOC KIT (SURGICARE) ONE; -EPINEPHRINE INJ/PF 1 MG/1 ML AMPULE ONE; -KETOROLAC TROMETHAMINE 0.45% 4 DROP/0.4 ML DROPERETTE OD PRN; +KETOROLAC TROMETHAMINE 0.45% 4 DROP/0.4 ML DROPERETTE OS PRN; -LIDOCAINE 1%/PHENYLEPHRINE 1.5% 1 ML VIAL ONE; +LIDOCAINE 3.5% OPH GEL/PF 1 ML/TUBE OS PRN; -LIDOCAINE 4% INJ/PF (40 MG/ML) 5 ML AMPUL OD PRN
[2020-08-26] MEDS ORDERED: ONDANSETRON HCL INJ/PF 4 MG/2 ML SDV ONE (09:11)
[2020-08-26] MEDS ORDERED: MIDAZOLAM 2 MG/2 ML INJ ONE (09:11)
[2020-08-26] MEDS ORDERED: FENTANYL CITRATE INJ/PF 100 MCG/2 ML AMPUL ONE (09:11)
[2020-08-26] MEDS: CYCLOPENTOLATE 0.2%/PHENYLEPHRINE 1% OPH SOLN 2 ML OS PRN ×4 (09:34→10:10)
[2020-08-26] MEDS: TROPICAMIDE 1% OPH SOLN 15 ML OS PRN ×3 (09:34→09:54)
[2020-08-26] MEDS: BESIFLOXACIN HCL 0.6% OPH SUSP 5 ML BOTTLE OS PRN ×4 (09:35→10:32)
[2020-08-26] MEDS: TETRACAINE HCL 0.5% OPH SOLN 4 ML OS PRN ×4 (09:35→10:10)
[2020-08-26] MEDS: CHONDR SU A NA/HYALUR INTRAOC KIT (SURGICARE) ONE ×2 (10:20)
[2020-08-26] MEDS: LIDOCAINE 1%/PHENYLEPHRINE 1.5% 1 ML VIAL ONE ×2 (10:20)
[2020-08-26] MEDS: EPINEPHRINE INJ/PF 1 MG/1 ML AMPULE ONE ×2 (10:20)
[2020-08-26] MEDS: PREDNISOLONE ACETATE 1% OPH SUSP 5 ML OS PRN ×2 (10:32)
[2020-08-26] MEDS: DORZOLAMIDE HCL 2%/TIMOLOL MALEAT 0.5% OPH SOLN 10 ML OS PRN ×2 (10:32)
--- NOTE | 2020-08-26 12:33 | Operative Report ---
Operative Report-[facility] Operative Report: DATE OF SURGERY: 08/26/2020 PREOPERATIVE DIAGNOSIS: Cataracts, left eye POSTOPERATIVE DIAGNOSIS: Cataract, left eye OPERATION: Cataract extraction with insertion of an IOL of the left eye. Intraocular Lens Model: [21.5 sn60wf] Underwent surgery for difficulty seeing small print SURGEON: Hilario Cueto MD ANESTHESIA: Topical PROCEDURE: After obtaining appropriate consent, the patient's left eye was prepped and draped in a sterile fashion as well as the surgeon in the sterile manner and cataract surgery was started. First a paracentesis blade was used to make a side-port incision. Viscoelastic was used to inflate the anterior chamber. Next a 2.4 mm incision was made with a 2.4 mm blade, clear corneal temporarily. A continuous capsulorrhexis was made using a cystotome and Utrata forceps. Following this hydrodissection was carried out to make the lens fully loose and mobile and it was rotated 90 degrees. Following this, a divide and conquer technique was used to phacoemulsify the lens. The remaining cortex was removed with an irrigation/aspiration. Provisc was instilled into the capsular bag to inflate the bag.The intraocular lens was placed. The remaining viscoelastic material was removed with irrigation/aspiration. Following this, the incision was found to be watertight. Besivance and Cosopt was instilled into the eye and a protective shield was placed over the eye. The patient was returned to the postoperative recovery in a stable condition.
== END 2020-08-26 11:09 | disposition home or self-care (01) ==
LOC: SC 08:52
PROVIDERS: ATTEND Internal Medicine
DX: H25.812 Combined forms of age-related cataract, left eye (principal); Z96.1 Presence of intraocular lens; E11.36 Type 2 diabetes mellitus with diabetic cataract; I10 Essential (primary) hypertension; Z79.4 Long term (current) use of insulin; Z72.0 Tobacco use
CPT/HCPCS: 66984; 82962; 00142; V2632; J2250; J3490 ×2; A9270; J0171; J3010; J2405; 142